=== PATIENT | male | born 1940 | race Caucasian/White ===

== ENCOUNTER → 2019-04-17 16:32 | Outpatient (CLI) | payer MEDICARE, SELFPAY ==
[2019-04-11 14:16] VITALS: BMI 26.3
--- NOTE | 2019-04-17 16:34 | CT_ITS ---
We are attempting to reach an attending provider to discuss findings. An addendum with communication details will be sent when the communication is complete. STUDY: CTA OF THE ABDOMINAL AORTA AND BILATERAL LOWER EXTREMITIES REASON FOR EXAM: Male, 78 years old. Shortness of breath history of prostate cancer radiation RADIATION DOSAGE (If Supplied By Facility): CTDIvol = ( 7.26 ) mGy, DLP = ( 1053.24 ) mGycm TECHNIQUE: Axial CT angiography multi-detector data acquisition was obtained from the to the following intravenous administration of IV Isovue 370 100CC. Axial images and MIP images were reconstructed from the axial data set. Post-processing of the angiographic images was performed, with multiplanar reformation and 3D reconstruction. Individualized dose optimization techniques were used for this CT. TECHNICAL QUALITY: Good COMPARISON: None. Descriptors of Narrowing: None (0%) Mild (< 50%) Moderate (50-70%) Severe (70-90%) Subtotal/Total Occlusion (90-100%) Non-Evaluable (technically non-diagnostic FINDINGS: Abdominal aorta: Aorta at the hiatus shows a 20% rim of anterior thrombosis, the caliber is 2.7 x 2.9 cm. At the level of the celiac aorta measures 2.8 x 2.4 cm. There is a 30% posterior thrombus demonstrated proximal to the level of tic of the renal arteries. There is calcification of the bilateral renal arteries especially on the right which may be hemodynamically significant. There is at least moderate narrowing of the takeoff. The aorta at the level of the renal arteries measures 2.3 x 2.0 cm. Is tortuous. There is peripheral calcification and peripheral thrombus. The aorta measures up to 2.6 x 2.2 cm. There is calcification of the bifurcation. Celiac and superior mesenteric arteries: No demonstrated narrowing. Inferior mesenteric artery: Occluded Right renal artery(arteries): Moderate proximal narrowing. Left renal artery(arteries): Mild to moderate left proximal narrowing. Right common iliac artery: There is moderate diffuse narrowing. Right external iliac artery: Mild to moderate diffuse narrowing. Right internal iliac artery: The right internal iliac is stenosed in the mid pelvis at the level of the abnormal fluid collection presacral stranding in the pelvis. There may be tiny vessels with reconstitution. Left common iliac artery: There is moderate to severe stenosis moderate narrowing likely hemodynamically significant within the mid common also seen on the 3-D reconstructed images. CT image 12 series 208. Left external iliac artery: There is mild to moderate plaque formation. Left internal iliac artery: There is stenosis of the left internal iliac in the mid left pelvis associated with an abnormal thickened fluid collection presacral stranding. RIGHT LOWER EXTREMITY Right common femoral artery: There is mild diffuse narrowing. Right profundus femoris: No demonstrated narrowing. Right superficial femoral: No demonstrated narrowing. Right popliteal artery: There is mild diffuse narrowing. Right tibioperoneal trunk: No demonstrated narrowing. Right anterior tibial artery: No demonstrated narrowing. Right posterior tibial artery: No demonstrated narrowing. Right peroneal artery: No demonstrated narrowing. LEFT LOWER EXTREMITY Left common femoral artery: There is mild diffuse narrowing. Left profundus femoris: No demonstrated narrowing. Left superficial femoral: No demonstrated narrowing. Left popliteal artery: There is mild diffuse narrowing. Left tibioperoneal trunk: No demonstrated narrowing. Left anterior tibial artery: No demonstrated narrowing. Left posterior tibial artery: There is mild to moderate diffuse narrowing, with visualization of the vessel to the distal calf. Left peroneal artery: No demonstrated narrowing. The base of the lungs are clear. The heart is within normal limits of size. The liver appears borderline enlarged fatty infiltrated. The gallbladder is not visualized and is likely been removed. The spleen appears normal the pancreas unremarkable. There is moderate right hydronephrosis which is likely associated with the inflammatory process occurring within the pelvis. There is left renal cortical thinning compatible with prior history of an infection and infarction are possible atherosclerotic disease. The stomach appears normally distended small bowel caliber normal. There is moderate stool in the colon there is diverticulosis without visualized diverticulitis. The colon is partially surrounded by the aforementioned complex appearing infiltration or fluid collection within the pelvis. The IVC appears normal there are several nonspecific subcentimeter peritoneal lymph nodes. There is a visualized prostate measures 2.9 x 3.4 cm. There is a abnormal appearing presacral fluid that measures approximately 3 to 4 cm deep on the axial views extending from the anterior aspect of the acetabulum to the sacrum pooling and a cyclic fashion with a probable rim. There is a suggestion of subtle enhancement. The Hounsfield units are in the range of complex to simple fluid. There is degenerative change in the thoracolumbar spine. There is a visualized laminectomy at L4 and L5. There is anterolisthesis L4-L5. There is a spinal fusion L203. There is multilevel neural foraminal narrowing. 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 This collects along the presacral spaces surrounding the rectum and anterior to the sacrum. Abnormal fluid presacral stranding for which further evaluation is recommended. If possible recommend consideration of follow-up MRI soft tissue pelvis for further clarification. Consider possible inflammatory infectious distention neoplastic or radiation change. This is causing moderate right hydronephrosis. In addition there is stenosis of the bilateral internal iliac arteries which is likely associated with this postinflammatory inflammatory or potentially evolving metastatic or potentially hemorrhagic process. Status post spinal fusion laminectomy degenerative change lumbar spine. Constipation and diverticulosis no diverticulitis. Status post cholecystectomy. 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 Hemodynamically significant stenosis of the left mid common iliac artery. Mild to moderate atherosclerotic disease of the lower extremities. Electronically Signed: Nani Guerra MD at 10:43 EST Tel , Service support ,
[2019-04-17 16:51] LABS: CREATININE FINGERSTICK 1.2 mg/dL (0.70-1.30)
== END ==
PROVIDERS: Family Provider Internal Medicine; PCP Internal Medicine; Referring Provider Surgery; Visit Provider Surgery
DX: I71.4 Abdominal aortic aneurysm, without rupture (principal); I73.9 Peripheral vascular disease, unspecified
CPT/HCPCS: 75635; Q9967

== ENCOUNTER → 2019-04-22 14:55 | Outpatient (CLI) | payer MEDICARE, SELFPAY ==
[2019-04-11 14:16] VITALS: BMI 26.3
--- NOTE | 2019-04-22 15:13 | EKG12_ITS ---
Test Reason : PRE OP Blood Pressure : / mmHG Vent. Rate : 058 BPM Atrial Rate : 058 BPM P-R Int : 166 ms QRS Dur : 100 ms QT Int : 398 ms P-R-T Axes : 069 061 057 degrees QTc Int : 390 ms Sinus bradycardia Otherwise normal ECG Confirmed by DEYAINRA MORRIS, CODY ([id number]), social media editor ASHU WIGGINS ([id number]) on 04/23/2019 11:17:25 AM Referred By: Emory Haywood Confirmed By:CODY MCMILLAN MD
[2019-04-22 15:21] LABS: Hematocrit 39.4 % (40-54); Hemoglobin 12.2 g/dL (13.0-16.5); Mean Corpuscular Hgb 25.7 pg (27.0-32.0); Mean Corpuscular Volume 82.9 fL (80-94); Platelet Count 202 K/mm3 (150-450); RBC Distribution Width CV 13.1 % (11.6-14.6); RBC Distribution Width SD 39.4 fl (35.1-43.9); Red Blood Count 4.75 M/mm3 (4.6-6.2); White Blood Count 6.2 K/mm3 (4.4-11.0)
[2019-04-22 16:00] LABS: Anion Gap 8 (5-15); BUN 25 mg/dL (7-18); BUN/Creat Ratio 21.6 RATIO (10-20); Calcium,Total 8.9 mg/dL (8.5-10.1); Chloride 108 mmol/L (98-107); Creatinine, Serum 1.16 mg/dL (0.70-1.30); EST Glomerular Filtration Rate 64 mL/min (>60); Est Glom Filt Rate - Afr Amer 78 mL/min (>60); Glucose 125 mg/dL (74-106); Potassium 3.8 mmol/L (3.5-5.1); Sodium Level 142 mmol/L (136-145)
== END ==
PROVIDERS: Family Provider Internal Medicine; PCP Internal Medicine; Referring Provider Urology; Visit Provider Urology
DX: Z01.810 Encounter for preprocedural cardiovascular examination (principal); Z01.818 Encounter for other preprocedural examination; C61 Malignant neoplasm of prostate; R00.1 Bradycardia, unspecified
CPT/HCPCS: 36415; 80048; 84153; 85027; 93005

== ENCOUNTER → 2019-04-28 09:33 | Outpatient (CLI) | payer MEDICARE, SELFPAY ==
[2019-04-25 08:16] VITALS: BMI 27.8
--- NOTE | 2019-04-28 09:34 | RAD_ITS ---
STUDY: X-RAY - ABDOMEN/PELVIS REASON FOR EXAM: Male, 78 years old. 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 TECHNIQUE: Single AP view of the abdomen / pelvis. COMPARISON: None. FINDINGS: Normal visualized lung bases. There is an unremarkable bowel gas pattern. The visualized liver, spleen and kidneys are grossly normal in size and morphology. There are calcified phleboliths in the pelvis. Prior laminectomy and fusion at the L3-L4 and L4-L5 levels. Dextroscoliosis. Multilevel degenerative changes of the lumbar spine. Degenerative changes of the sacroiliac joints. RAD/Abdomen Single View IMPRESSION: Nonspecific bowel gas pattern. Electronically Signed: Carlos Eduardo Marr, at 8:45 EST , Service support ,
== END ==
PROVIDERS: Family Provider Internal Medicine; PCP Internal Medicine; Referring Provider Surgery; Visit Provider Surgery
DX: K62.89 Other specified diseases of anus and rectum (principal)
CPT/HCPCS: 74018

== ENCOUNTER 2019-05-02 12:26 | Day surgery (SDC) | payer MEDICARE, SELFPAY ==
[2019-04-11 14:16] VITALS: BMI 26.3
[2019-04-25 08:16] VITALS: BMI 27.8
--- NOTE | 2019-04-25 08:21 | HP_ITS ---
Intake Vital Signs 04/25/19 Height 5 ft 3.5 in 04/25/19 Weight: 160 lb 04/25/19 Body Mass Index (BMI) 27.8 04/25/19 Blood Pressure 139/71 H 04/25/19 Blood Pressure Location Rt brachial 04/25/19 Blood Pressure Position Sitting 04/25/19 Respiratory Rate 16 04/25/19 Pulse Rate 56 L 04/25/19 Pulse Source Monitor 04/25/19 Temperature 98.5 F 04/25/19 Temperature Source Oral 04/25/19 Pulse Ox 96 04/25/19 Oxygen Delivery Method room air 04/25/19 Body Mass Index (BMI) 26.3 Intake Visit Reasons: Follow up CTA Waste Machine Operator Required: No Is patient in pain?: No Allergies aspirin Allergy (Mild, Verified 04/25/19 08:17) Bleeding Medications acetaminophen 325 mg capsule 325 mg PO .prn cap 04/11/19 [History Confirmed 04/25/19] vitamin B complex tablet 1 tab PO DAILY 04/25/19 [History Confirmed 04/25/19] PFSH Medical History (Updated 04/25/19 @ 08:15 by Makenzie New) History of prostate cancer (Acute) Pelvic mass in male (Acute) Peripheral arterial occlusive disease (Acute) Hyperlipidemia (Acute) Rheumatoid arthritis (Acute) Spinal disease (Acute) Prostate cancer (Acute) AAA (abdominal aortic aneurysm) (Acute) PVD (peripheral vascular disease) (Acute) Surgical History (Updated 04/25/19 @ 08:14 by Makenzie New) Hx of bilateral cataract extraction (Acute) History of incisional hernia repair (Acute) S/P prostatectomy (Acute) S/P spinal fusion (Acute) S/P AAA repair (Acute) Family History (Updated 04/11/19 @ 14:13 by Suzie Morales) Brother Diabetes Social History (Updated 04/25/19 @ 08:21 by Sandor Maurer MD) Smoking Status: Former smoker alcohol intake: never substance use type: does not use caffeine: Yes HPI HPI HPI: BROOKE ALICIA, is a 78 M who presents to the office today for HPI HPI Surgical H&P: Yes HPI: BROOKE ALICIA, is a 78 M who presents to the office today for surgical follow-up regarding the CTA abdomen with runoff. It now becomes apparent that December Dr. Oh Alicia attempted a colonoscopy but was not successful. The patient did not describe any of this to me. A biopsy apparently was taken by Dr. Oh Alicia of a suspected mass but the pathology simply benign. His operative note suggest that visualization and angulation to get a clear view of the problem was not possible. The patient did not follow-up with Dr. Alicia regarding this issue. The patient states today that he thought the issue was resolved.The CT scan below demonstrates suggestion that there is significant changes of the prostate bed with hydroureter. The patient has been seen by Dr. Haywood and he is scheduled for cystoscopy and ureteral stent. PSA level that was obtained was normal. [facility] [address] [place] [address] CTA Abd w/Runoff W/WO Contrast MR#: [id number] Name: BROOKE ALICIA [facility] #:[id number] : 1941M [id number] From: Nani Guerra MD PCP:Kaylan Webb Status:REG CLI Study:CTA Abd w/Runoff W/WO Contrast Date of Exam:04/17/19 Exam#[id number] Ordering Dr: Sandor Maurer MD ADDENDUM by Nani Guerra M.D. on 04/20/19 at 1043 STUDY: CTA OF THE ABDOMINAL AORTA AND BILATERAL LOWER EXTREMITIES REASON FOR EXAM: Male, 78 years old. Shortness of breath history of prostate cancer radiation RADIATION DOSAGE (If Supplied By Facility): CTDIvol = ( 7.26 ) mGy, DLP = ( 1053.24 ) mGycm TECHNIQUE: Axial CT angiography multi-detector data acquisition was obtained from the to the following intravenous administration of IV Isovue 370 100CC. Axial images and MIP images were reconstructed from the axial data set. Post-processing of the angiographic images was performed, with multiplanar reformation and 3D reconstruction. Individualized dose optimization techniques were used for this CT. TECHNICAL QUALITY: Good COMPARISON: None. Descriptors of Narrowing: None (0%) Mild (< 50%) Moderate (50-70%) Severe (70-90%) Subtotal/Total Occlusion (90-100%) Non-Evaluable (technically non-diagnostic FINDINGS: Abdominal aorta: Aorta at the hiatus shows a 20% rim of anterior thrombosis, the caliber is 2.7 x 2.9 cm. At the level of the celiac aorta measures 2.8 x 2.4 cm. There is a 30% posterior thrombus demonstrated proximal to the level of tic of the renal arteries. There is calcification of the bilateral renal arteries especially on the right which may be hemodynamically significant. There is at least moderate narrowing of the takeoff. The aorta at the level of the renal arteries measures 2.3 x 2.0 cm. Is tortuous. There is peripheral calcification and peripheral thrombus. The aorta measures up to 2.6 x 2.2 cm. There is calcification of the bifurcation. Celiac and superior mesenteric arteries: No demonstrated narrowing. Inferior mesenteric artery: Occluded Right renal artery(arteries): Moderate proximal narrowing. Left renal artery(arteries): Mild to moderate left proximal narrowing. Right common iliac artery: There is moderate diffuse narrowing. Right external iliac artery: Mild to moderate diffuse narrowing. Right internal iliac artery: The right internal iliac is stenosed in the mid pelvis at the level of the abnormal fluid collection presacral stranding in the pelvis. There may be tiny vessels with reconstitution. Left common iliac artery: There is moderate to severe stenosis moderate narrowing likely hemodynamically significant within the mid common also seen on the 3-D reconstructed images. CT image 12 series 208. Left external iliac artery: There is mild to moderate plaque formation. Left internal iliac artery: There is stenosis of the left internal iliac in the mid left pelvis associated with an abnormal thickened fluid collection presacral stranding. RIGHT LOWER EXTREMITY Right common femoral artery: There is mild diffuse narrowing. Right profundus femoris: No demonstrated narrowing. Right superficial femoral: No demonstrated narrowing. Right popliteal artery: There is mild diffuse narrowing. Right tibioperoneal trunk: No demonstrated narrowing. Right anterior tibial artery: No demonstrated narrowing. Right posterior tibial artery: No demonstrated narrowing. Right peroneal artery: No demonstrated narrowing. LEFT LOWER EXTREMITY Left common femoral artery: There is mild diffuse narrowing. Left profundus femoris: No demonstrated narrowing. Left superficial femoral: No demonstrated narrowing. Left popliteal artery: There is mild diffuse narrowing. Left tibioperoneal trunk: No demonstrated narrowing. Left anterior tibial artery: No demonstrated narrowing. Left posterior tibial artery: There is mild to moderate diffuse narrowing, with visualization of the vessel to the distal calf. Left peroneal artery: No demonstrated narrowing. The base of the lungs are clear. The heart is within normal limits of size. The liver appears borderline enlarged fatty infiltrated. The gallbladder is not visualized and is likely been removed. The spleen appears normal the pancreas unremarkable. There is moderate right hydronephrosis which is likely associated with the inflammatory process occurring within the pelvis. There is left renal cortical thinning compatible with prior history of an infection and infarction are possible atherosclerotic disease. The stomach appears normally distended small bowel caliber normal. There is moderate stool in the colon there is diverticulosis without visualized diverticulitis. The colon is partially surrounded by the aforementioned complex appearing infiltration or fluid collection within the pelvis. The IVC appears normal there are several nonspecific subcentimeter peritoneal lymph nodes. There is a visualized prostate measures 2.9 x 3.4 cm. There is a abnormal appearing presacral fluid that measures approximately 3 to 4 cm deep on the axial views extending from the anterior aspect of the acetabulum to the sacrum pooling and a cyclic fashion with a probable rim. There is a suggestion of subtle enhancement. The Hounsfield units are in the range of complex to simple fluid. There is degenerative change in the thoracolumbar spine. There is a visualized laminectomy at L4 and L5. There is anterolisthesis L4-L5. There is a spinal fusion L203. There is multilevel neural foraminal narrowing. 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 04/20/19 1043 Date cc: Kaylan Webb; Sandor Maurer MD ~* Signed ADDENDUM by Nani Guerra M.D. on 04/20/[address]/CTA Abd w/Runoff W/WO Contrast IMPRESSION: Stenosis of the bilateral internal iliac arteries which may be related to an infectious neoplastic or post radiation process within the pelvis that appears to represent a thick fluid collection or infiltration. This collects along the presacral spaces surrounding the rectum and anterior to the sacrum. Abnormal fluid presacral stranding for which further evaluation is recommended. If possible recommend consideration of follow-up MRI soft tissue pelvis for further clarification. Consider possible inflammatory infectious distention neoplastic or radiation change. This is causing moderate right hydronephrosis. In addition there is stenosis of the bilateral internal iliac arteries which is likely associated with this postinflammatory inflammatory or potentially evolving metastatic or potentially hemorrhagic process. Status post spinal fusion laminectomy degenerative change lumbar spine. Constipation and diverticulosis no diverticulitis. Status post cholecystectomy. 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 Hemodynamically significant stenosis of the left mid common iliac artery. Mild to moderate atherosclerotic disease of the lower extremities. N.B. : The above information has been verbally conveyed by Nani Guerra MD to Dr. Dalila MD, on 04/20/2019 11:00:28 (ET). Electronically Signed: Nani Guerra MD at 10:43 EST Tel , Service support , 04/20/191106 Date cc: Kaylan Webb; Sandor Maurer MD ~* Signed We are attempting to reach an attending provider to discuss findings. An addendum with communication details will be sent when the communication is complete. STUDY: CTA OF THE ABDOMINAL AORTA AND BILATERAL LOWER EXTREMITIES REASON FOR EXAM: Male, 78 years old. Shortness of breath history of prostate cancer radiation RADIATION DOSAGE (If Supplied By Facility): CTDIvol = ( 7.26 ) mGy, DLP = ( 1053.24 ) mGycm TECHNIQUE: Axial CT angiography multi-detector data acquisition was obtained from the to the following intravenous administration of IV Isovue 370 100CC. Axial images and MIP images were reconstructed from the axial data set. Post-processing of the angiographic images was performed, with multiplanar reformation and 3D reconstruction. Individualized dose optimization techniques were used for this CT. TECHNICAL QUALITY: Good COMPARISON: None. Descriptors of Narrowing: None (0%) Mild (< 50%) Moderate (50-70%) Severe (70-90%) Subtotal/Total Occlusion (90-100%) Non-Evaluable (technically non-diagnostic FINDINGS: Abdominal aorta: Aorta at the hiatus shows a 20% rim of anterior thrombosis, the caliber is 2.7 x 2.9 cm. At the level of the celiac aorta measures 2.8 x 2.4 cm. There is a 30% posterior thrombus demonstrated proximal to the level of tic of the renal arteries. There is calcification of the bilateral renal arteries especially on the right which may be hemodynamically significant. There is at least moderate narrowing of the takeoff. The aorta at the level of the renal arteries measures 2.3 x 2.0 cm. Is tortuous. There is peripheral calcification and peripheral thrombus. The aorta measures up to 2.6 x 2.2 cm. There is calcification of the bifurcation. Celiac and superior mesenteric arteries: No demonstrated narrowing. Inferior mesenteric artery: Occluded Right renal artery(arteries): Moderate proximal narrowing. Left renal artery(arteries): Mild to moderate left proximal narrowing. Right common iliac artery: There is moderate diffuse narrowing. Right external iliac artery: Mild to moderate diffuse narrowing. Right internal iliac artery: The right internal iliac is stenosed in the mid pelvis at the level of the abnormal fluid collection presacral stranding in the pelvis. There may be tiny vessels with reconstitution. Left common iliac artery: There is moderate to severe stenosis moderate narrowing likely hemodynamically significant within the mid common also seen on the 3-D reconstructed images. CT image 12 series 208. Left external iliac artery: There is mild to moderate plaque formation. Left internal iliac artery: There is stenosis of the left internal iliac in the mid left pelvis associated with an abnormal thickened fluid collection presacral stranding. RIGHT LOWER EXTREMITY Right common femoral artery: There is mild diffuse narrowing. Right profundus femoris: No demonstrated narrowing. Right superficial femoral: No demonstrated narrowing. Right popliteal artery: There is mild diffuse narrowing. Right tibioperoneal trunk: No demonstrated narrowing. Right anterior tibial artery: No demonstrated narrowing. Right posterior tibial artery: No demonstrated narrowing. Right peroneal artery: No demonstrated narrowing. LEFT LOWER EXTREMITY Left common femoral artery: There is mild diffuse narrowing. Left profundus femoris: No demonstrated narrowing. Left superficial femoral: No demonstrated narrowing. Left popliteal artery: There is mild diffuse narrowing. Left tibioperoneal trunk: No demonstrated narrowing. Left anterior tibial artery: No demonstrated narrowing. Left posterior tibial artery: There is mild to moderate diffuse narrowing, with visualization of the vessel to the distal calf. Left peroneal artery: No demonstrated narrowing. The base of the lungs are clear. The heart is within normal limits of size. The liver appears borderline enlarged fatty infiltrated. The gallbladder is not visualized and is likely been removed. The spleen appears normal the pancreas unremarkable. There is moderate right hydronephrosis which is likely associated with the inflammatory process occurring within the pelvis. There is left renal cortical thinning compatible with prior history of an infection and infarction are possible atherosclerotic disease. The stomach appears normally distended small bowel caliber normal. There is moderate stool in the colon there is diverticulosis without visualized diverticulitis. The colon is partially surrounded by the aforementioned complex appearing infiltration or fluid collection within the pelvis. The IVC appears normal there are several nonspecific subcentimeter peritoneal lymph nodes. There is a visualized prostate measures 2.9 x 3.4 cm. There is a abnormal appearing presacral fluid that measures approximately 3 to 4 cm deep on the axial views extending from the anterior aspect of the acetabulum to the sacrum pooling and a cyclic fashion with a probable rim. There is a suggestion of subtle enhancement. The Hounsfield units are in the range of complex to simple fluid. There is degenerative change in the thoracolumbar spine. There is a visualized laminectomy at L4 and L5. There is anterolisthesis L4-L5. There is a spinal fusion L203. There is multilevel neural foraminal narrowing. 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 This collects along the presacral spaces surrounding the rectum and anterior to the sacrum. Abnormal fluid presacral stranding for which further evaluation is recommended. If possible recommend consideration of follow-up MRI soft tissue pelvis for further clarification. Consider possible inflammatory infectious distention neoplastic or radiation change. This is causing moderate right hydronephrosis. In addition there is stenosis of the bilateral internal iliac arteries which is likely associated with this postinflammatory inflammatory or potentially evolving metastatic or potentially hemorrhagic process. Status post spinal fusion laminectomy degenerative change lumbar spine. Constipation and diverticulosis no diverticulitis. Status post cholecystectomy. 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 Hemodynamically significant stenosis of the left mid common iliac artery. Mild to moderate atherosclerotic disease of the lower extremities. Electronically Signed: Nani Guerra MD at 10:43 EST Tel , Service support , CC: Kaylan Webb; Sandor Maurer MD ~ Quality Engineer Medical Device: Signed Previous notes reflect the following: Intake Visit Reasons: PVD Carotid Flow Study [facility] 03/31 Waste Machine Operator Required: No Is patient in pain?: No Allergies aspirin Allergy (Mild, Verified 04/11/19 14:15) Bleeding Medications acetaminophen 325 mg capsule 325 mg PO .prn cap 04/11/19 [History Confirmed 04/11/19] PFSH Medical History AAA (abdominal aortic aneurysm) (Acute) PVD (peripheral vascular disease) (Acute) Prostate cancer (Acute) Spinal disease (Acute) Surgical History History of incisional hernia repair (Acute) S/P AAA repair (Acute) S/P prostatectomy (Acute) S/P spinal fusion (Acute) Family History Brother Diabetes Social History (Updated 04/11/19 @ 17:52 by Sandor Maurer MD) Smoking Status: Former smoker alcohol intake: never HPI HPI HPI: BROOKE ALICIA, is a 78 M who presents to the office today for surgical consultation regarding peripheral vascular occlusive disease. Patient is referred by his primary care physician Dr. Webb and a written copy of my surgical consult recommendations will be returned to him. Getting a clearance specific history from this patient is rather challenging. He states he is here because of peripheral vascular disease. When questioning him he states he just does not have the ability to do his yard work like he did before. He states that he had back surgery 2-1/2 years ago because of arthritis pushing up on his back. He states he had the low back surgery because he was short of breath. He complains that he finds it very difficult once he bends down to his knees to get up from his knees. He has diffuse soreness and he points to bilateral thighs and inner knee area with walking. He complains of cold toes. Chart review reveals that he had a open aortic aneurysm repair at [facility] in 2008. He does not have routine follow-up for that. Upon further discussion issues with him he claims to have rheumatoid arthritis. He is [place] on no medication for that. He states that he saw a pipe machine operator but that the medications were going to be too expensive so he does not take anything for it. His history is notable for having been a 2 pack-a-day cigarette smoker for 34 years starting at age 59 and quitting at age 49. He has hyperlipidemia. As of March 21, 2019 cholesterol is 253 triglycerides 74 HDL is 41 LDL 197. BUN 21 creatinine 0.9 with a estimated GFR of greater than 60. His hemoglobin is 13.9 and hematocrit is 41.8 with a platelet count of 201,000. He states that it has been recommended to him in the past to be on cholesterol lowering medications. He states that he was either intolerant to the medications or that by reading the medication description that he did not want to experience possible side effect. At [facility] on March 31 carotid duplex exam showed less than 50% stenosis of the right internal carotid and less than 50% stenosis of the left internal carotid. On that same day PVRs at rest suggested right femoral biphasic right popliteal biphasic right posterior tibial triphasic and right dorsalis pedis monophasic with a right ankle-brachial index of 0.89. On the left femoral popliteal posterior tib and dorsalis pedis waveforms are all monophasic. The left ZACH was 0.61. It is of additional note that the PPG waveform of the right great digit was normal. The PPG waveform for the left great digit was normal. HPI HPI HPI: BROOKE ALICIA, is a 78 M who presents to the office today for Exam Const General: cooperative, other (Elderly in appearance) Nutritional Appearance: average body habitus Orientation: alert, awake Other: The patient moves very stiffly and needs help off of the exam table HENMT Other: Moderate kyphosis Resp Effort & Inspection: normal respiratory effort Auscultation: clear to auscultation bilaterally Cardio Rate: regular rate Rhythm: regular rhythm Other: Bilateral radials 2+. Bilateral brachials 2+. Bilateral carotids 2+. 2/6 bruit on the left. No bruit on the right. Left femoral 2+. Right femoral 3+. Left popliteal and PT 1+ with the left DP 0. Right popliteal and PT 1+ with the right DP 0 GI Palpation: soft, no hepatosplenomegaly Auscultation: normal bowel sounds Other: Well-healed xiphoid to pubic midline incision, nontender, not expansile Musc Other: Calves are supple nontender Neuro Cognition: normal cognition Extrem Other: 2+ pitting edema bilateral lower extremities, mildly swollen feet with thin shiny skin of the dorsum of the feet and of all the digits with a violaceous discoloration of the digits and coolness to touch, bony prominence particularly of the left great toe blanching with underneath bone Psych Affect: normal affect Assessment & Plan Problems 1. Rheumatoid arthritis, involving unspecified site, unspecified rheumatoid factor presence M06.9 2. Hyperlipidemia, unspecified hyperlipidemia type E78.5 3. Peripheral arterial occlusive disease I77.9 Plan 78-year-old gentleman. He seemed to be reasonably convinced that the majority of his bilateral lower extremity leg problems were secondary to vascular ischemia. I have very great concerns that although he does have a component of peripheral arterial occlusive disease that his violaceous cool feet are a consequence of his rheumatoid arthritis. It is of note that the noninvasive study demonstrated well-preserved waveforms at the digital level. I have additional concerns that he is not been taking medications for his rheumatoid arthritis. He has also declined medications for his hyperlipidemia. As I witnessed him getting off the exam table and moving to me it appears the majority of his issues are diffuse musculoskeletal stiffness and range of motion limitations and pain. Certainly he could have a component of vascular claudication but I am greatly concerned about his other medical comorbidities. He does have preserved renal function. I have offered him a CTA of the abdomen and runoff. He does not recall having had his aortic aneurysm repair of 2008 recently checked. We will subsequently have him return to the office. If we performed endovascular treatment of his lower extremities we would have to take an antegrade approach because of the previous graft repair of his aneurysm. He has had an opportunity to ask and have questions answered. I believe that both he and his are now more fully enlightened as to the complexity of his presentation. I believe that he might reconsider pursuing medical maximization of his care in addition to the CTA. I very much appreciate the kind opportunity of assisting with surgical care CC: Dr. Tracey Maurer M.D., F.A.C.S. Orders Orders: CTA Abd w/Runoff W/WO Contrast Today I71.4, I73.9 Coding Level of Care Code 90420 Diagnoses Rheumatoid arthritis, involving unspecified site, unspecified rheumatoid factor presence M06.9 Rheumatoid arthritis location: unspecified site Rheumatoid factor presence: unspecified presence Hyperlipidemia, unspecified hyperlipidemia type E78.5 Hyperlipidemia type: unspecified Peripheral arterial occlusive disease I77.9 04/11/19 413<Electronically signed by Sandor Maurer MD> Date Sandor Maurer MD ROS General General: No weight change, appetite, fatigue, colon cancer or breast cancer HEENT HEENT: Yes eye surgery; no difficulty swallowing, eye injury, swollen glands or hoarseness Endo Endocrine: No thyroid disease, diabetes mellitus, thyroid cancer, Hair loss, heat intolerance or cold intolerance Skin Skin: No rash or changing moles Musc Musculoskeletal: Yes back problems, arthritis, rheumatoid arthritis and joint pain; no gout Cardio Cardiovascular: No murmur, pacemaker, heart disease, atrial fibrillation, high blood pressure, heart attack, heart stent, palpitations, shortness of breat with exertion or chest pain Psych Psychiatric: No depression, anxiety or hearing voices Resp Respiratory: Yes shortness of breath, No sleep apnea, No cough, No COPD, No asthma, No emphysema, No wheezing Gastro Gastrointestinal: No abdominal pain, No nausea or vomiting, No diarrhea, No constipation, No blood in stool, No acid reflux, No hemorrhoids, No ulcers, No gallbladder problem, No black,tarry stools [place] Hematologic: No blood thinners, No blood disorders, No bleeding, No anemia, No blood clots Neuro Neurologic: Yes numbness, Yes tingling Exam Cardio Heart Sounds: no murmurs Assessment & Plan Problems 1. Pelvic mass in male R19.00 Plan I have discussed with the patient his that the pelvic mass that he has is now a primary concern. This would seem to make sense with a degree of bilateral lower extremity swelling. 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 I have suggested to him that that is not my primary concern for him at the moment. Based upon the unsuccessful colonoscopy I recommend to him a barium enema in an attempt to try to better define whether his pelvic mass is colonic in origin or prostate in origin. The patient also scheduled for cystoscopy and ureteral stent placement per Dr. Haywood.. We will then have the patient return subsequently to discuss how to approach and diagnosed that pelvic mass problem. It could require that I try myself or repeat endoscopy attempt possibly with an upper scope with the intent to do a flexible sigmoidoscopy. The patient and his now seem to understand that this pelvic mass problem has not been resolved with his previous attempted colonoscopy. They are willing to proceed with further diagnostic and if need be therapeutic efforts. I will place the arterial work on hold temporarily. cc:Dr Claudia Maurer M.D., F.A.C.S. Orders Orders: Barium Enema w/Air Contrast Today K62.89 Coding Level of Care Code Off vis,est,level 2 Diagnoses Pelvic mass in male R19.00 04/25/19 0821 <Electronically signed by Sandor arias MD> Date _ Sandor Maurer MD
[2019-05-02 13:05] VITALS: BP 135/62; PULSE 52; RESP 16; TEMP 36.3; O2SAT 100; BMI 26.5
[2019-05-02] MEDS: Lactated Ringers 1,000 ML 100 ML IV (13:28)
--- NOTE | 2019-05-02 14:30 | PROSB_PTH ---
PATIENT: BROOKE ALICIA LOC[place] [facility] [place][id number] AGE/SX: 78/M ROOM: RE05/02/[address]: Dr. Emory Haywood MD : 1940 BED: DIS: 05/02/2019 SPEC #: [id number] RECD: 05/05/19 07:45 STATUS: JAVIER RECabrera #: [id number] DOROTEO: 05/02/19 14:[address]: Emory Haywood DEPT: SURGICAL PATHOLOGY RECD BY: Lillian Oviedo ENTERED: 05/05/19 10:01 SP TYPE: PROST BX OTHR DR: Dr. Kaylan Webb MD Tissues: Prostate, NOS Procedures: Surgery Specimen Level IV HEADER OPERATION: Transrectal biopsies of prostate, cysto, retrograde, stent PRE-OP DIAGNOSIS: Prostatic mass, right hydronephrosis TISSUE SUBMITTED: Transrectal biopsies MICROSCOPIC DIAGNOSIS Prostate, transrectal biopsies: Prostatic stromal tissue with hyalinization and chronic inflammation. Negative for malignancy. See comment. URVASHI:dona 05/06/19 COMMENT The findings may represent therapy-related changes. Mild stromal hyperplasia is noted, may represent stromal nodule. No glandular tissue is identified. Correlation with clinical findings and appropriate follow up are necessary. If there is high suspicion of malignancy, rebiopsy is suggested, if clinically indicated. 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 Case has been reviewed in consultation with Dr. Levy who concurs with the above diagnosis. IDC:AM MICROSCOPIC DESCRIPTION Slides are reviewed. GROSS DESCRIPTION Received in fixative is one container labeled with the patient's name and designated transrectal biopsy. The specimen consists of five elongated fragments of light camara-white soft tissue measuring 1 to 4 cm in length and 0.1 cm in diameter. The specimen is totally submitted in two cassettes. The largest fragment is present in cassette 1. / URVASHI:dona 05/05/19 TC:3 CPT: 13212
[2019-05-02] MEDS: Cefazolin 2 GM in 0.9% Normal Saline 100 ML IV (14:53)
[2019-05-02] MEDS: Lubricating Jelly 60 GM Tube 30 GM TOPICAL (14:55)
--- NOTE | 2019-05-02 14:56 | DCINST_ITS ---
- Discharge Diagnoses Current Active Problems: prostate biopsy Reason(s) for Visit for Discharge Instructions: biopsy You will use the following diet at home:: No restrictions Your food should be the consistency of: Regular Discharge Activity: Return to Normal Activity Call your doctor if your incision/area has: Sudden Increased Bleeding Call your doctor if you observe: Fever of 101 or Higher Allergies/Adverse Reactions: Allergies aspirin Allergy (Mild, Verified 05/02/19 13:04) Bleeding gums Medications to take at Discharge acetaminophen 325 mg capsule 325 mg PO PRN PRN cap 04/11/19 Cyanocobalamin (Vitamin B-12) [Vitamin B-12] 5,000 mcg PO DAILY 04/25/19 Ciprofloxacin [Cipro] 500 mg PO BID #6 tab 05/02/19 The following prescriptions were given: Ciprofloxacin [Cipro] 500 mg PO BID #6 tab Transmission Status: Pending to [facility] Primary Care Physician: Kaylan Webb [Primary Care Provider] - Test Results: Test results from this visit will be discussed in further detail at your follow- up appointment, if applicable. Please Follow Up With: Emory Haywood MD When: 2 weeks.
--- NOTE | 2019-05-02 15:33 | PCM.OPRPT ---
Report of Operation Date of Procedure: 05/02/19 Pre-Operative Diagnosis: Firm mass on rectal exam history of prostate cancer right hydronephrosis on CAT scan Post-Operative Diagnosis: The same, firm mass on rectal exam Surgery/Procedure Performed:: Cystoscopy, right retrograde pyelogram, interpretation fluoroscopic images, right stent placement, transrectal biopsy of mass Description of Surgical Findings:: 78-year-old male who was recently found to have hydronephrosis on the right kidney and a CAT scan also on exam he has a hard mass within the prostate area he has a history of prostate cancer treated long time ago. There is concerned that perhaps this may be recurrent prostate cancer or some sort of process so today I am going to proceed with a cystoscopy retrograde pyelogram and stent placement on the right side because of obstruction of the right kidney and also we will do a transrectal biopsy of the firm mass felt on exam. Patient was taken back to the operating room after smooth induction of anesthesia he was placed in dorsolithotomy position penis and testicles were prepped and draped in usual sterile fashion went into the urethra with a 21 Indonesian rigid cystourethroscope using a 30 degree lens the entire length urethra is normal the sphincter was intact when she crossed through the prostate area very firm hard prostate could feel the pushing against the scope very hard to get through it very firm prostate as I got into the bladder the prostate was high riding could not see the ureteral orifices can see the bladder there is no tumors or stones within the bladder we can feel the hard prostate pushing the scope up very difficult to see the ureteral orifices, I switched over to 70 degree lens and I was able to identify the left ureteral orifice and then I was then identified the right ureteral orifice using all bronze bridge I then was able to deflect the Pollick catheter into the path of the right ureteral orifice and after several attempts was able to cannulate the right ureteral orifice with a Pollick catheter and a Glidewire events a wire up into the right kidney, performed a retrograde pyelogram, looked at the contrast and the images he had hydronephrosis of the right side I then advanced a wire up into the right kidney and then over the wire advanced a stent 6 Indonesian by 26 cm stent I put a string of the stent but cut it short so there is any problems or difficulties I can use a string to help extract the stent. I position the stent in the bladder properly and there was in the kidney properly. We then drained the bladder there is some minimal bleeding from the procedure because had to reduce some torquing in order to place a stent which caused some bleeding at the bladder neck. I then used a double gloved approach to do a biopsy of the mass felt on exam on exam of the prostate he just had this firm mass almost circumferential on the rectal exam on CAT scan he can can see a firm area that was very thickened 3 or 4 biopsies were done good samples were taken and these were handed off as a specimen. After this pressure was held on the rectum but then there is no more bleeding. Patient anesthetic is currently being reversed plan to see him back in about 2 weeks to review the tissue report and certainly treatments can be dictated by what the tissue report shows in the biopsy with recurrent prostate cancer we will start him on treatment with another process we will have the do appropriate referrals. Type of Anesthesia:: General Drains: right stent - Admit VTE Documentation VTE Present on Admission: No
[2019-05-02 15:45] VITALS: BP 135/62; BP 152/69; PULSE 61; RESP 18; TEMP 36.5; O2SAT 99
[2019-05-02 16:00] VITALS: BP 135/62; BP 153/64; PULSE 64; RESP 16; O2SAT 95
[2019-05-02 16:15] VITALS: BP 135/62; BP 159/63; PULSE 65; RESP 16; O2SAT 98
[2019-05-02 16:28] VITALS: BP 135/62; BP 165/76; PULSE 63; RESP 16; TEMP 36.2; O2SAT 100
[2019-05-02 17:33] VITALS: BP 135/62
== END 2019-05-02 17:34 | disposition home or self-care (01) ==
LOC: SDC 12:27 → AC 12:28
PROVIDERS: Family Provider Internal Medicine; PCP Internal Medicine; Referring Provider Urology; Visit Provider Urology
PROC: (CPT 52332; principal; 2019-05-02 14:20)
DX: N40.3 Nodular prostate with lower urinary tract symptoms (principal); R35.0 Frequency of micturition; N13.30 Unspecified hydronephrosis; Z85.46 Personal history of malignant neoplasm of prostate; Z87.891 Personal history of nicotine dependence
CPT/HCPCS: 45100; 52332; 76000; 88305; J7120; C2617; J2405

== ENCOUNTER 2019-05-13 09:19 | Emergency (ER) | payer MEDICARE, SELFPAY ==
[2019-05-07 16:13] VITALS: BMI 26.5
[2019-05-13 09:21] VITALS: BP 138/62; PULSE 80; RESP 16; TEMP 36.4; O2SAT 100; BMI 25.8
--- NOTE | 2019-05-13 09:39 | EKG12_ITS ---
Test Reason : LOWER EXEMITRY Blood Pressure : / mmHG Vent. Rate : 060 BPM Atrial Rate : 060 BPM P-R Int : 148 ms QRS Dur : 096 ms QT Int : 374 ms P-R-T Axes : 052 054 028 degrees QTc Int : 374 ms Normal sinus rhythm Normal ECG Confirmed by BRANDON AGARWAL ([id number]), news assignment editor JEMMA ALICIA ([id number]) on 05/16/2019 11:27:05 AM Referred By: BIPIN Confirmed By:BRANDON AGARWAL
--- NOTE | 2019-05-13 09:41 | VDLE_ITS ---
Reason For Study: swelling RIGHT LEFT POP V is compressible, spontaneous, phasic, CFV is compressible, spontaneous, phasic, competent and demonstrates normal competent, and demonstrates normal augmentation. augmentation. T/P Trunk is compressible. PTV is compressible. RT PerV is compressible. CFV and FV are dilated and noncompressible without flow. Proximal GSV is dilated and noncompressible. Hypoechoic area behind the knee measuring 1.3 x 1.86 cm in short. Area is nonvascular. Procedure Exam performed portable in ED. The exam was diagnostic. A preliminary report was called and/or faxed to ED physician. Interpretation Summary Acute deep vein thrombosis is noted in the right common femoral vein. Acute deep vein thrombosis is noted in the right femoral vein. The remainder of the right lower extremity deep venous system is patent and compressible. The right popliteal vein is competent. Acute superficial thrombophlebitis is noted in the proximal right great saphenous vein. A non-vascular, hypoechoic structure is noted in the right popliteal space, measuring 1.3 cm x 1.86 cm. This probably represents a popliteal cyst. Clinical correlation is advised. Ordering Physician: Connor Cade Performed By: Jamel Leal RVT
--- NOTE | 2019-05-13 09:42 | ED.DCSUM_ITS ---
- ER Visit Summary Date of Service: 05/13/19 Chief Complaint: Lower extremity pain and swelling History of Present Illness: The patient is a 78 M who presents with lower extremity pain and swelling that began yesterday. Patient states the pain is a dull ache. Patient states the pain improves when he sits. Patient admits to some tingling in both of his great toes. Patient denies any weakness. Patient states the pain is worse over the medial aspect of the right thigh. Patient also admits to some shortness of breath with exertion. Patient denies any chest pain. Patient states he has been having some urinary retention since last night. Patient states he was able to dribble a small amount of urine this morning but still feels like he has a lot of pressure in his bladder. Physical Examination: Vital signs are stable. Patient is afebrile. Patient is in no acute distress. Oral mucosa is pink and moist. Neck is supple. Trachea is midline. There is no JVD. Heart was regular rate and rhythm. Lungs are clear and equal bilaterally. Abdomen is soft and nontender. Extremities are intact. There is 3+ edema of the right lower extremity. There is no tenderness to palpation. There is no edema of the left lower extremity. Sensation was intact light touch in all digits. Capillary refill is less than 2 seconds in all digits. Test Results: CBC shows a mild anemia with a hemoglobin of 12.4 hematocrit of 39.3. White blood cell count was normal. Basic metabolic profile was normal. Urinalysis shows leukocyte esterase of 100 with greater than 100 white blood cells and 50-100 red blood cells. EKG showed normal sinus rhythm with a rate of 60. There are no acute ST or T wave changes. Chest x-ray shows a small density in the right paratracheal area. CTA of the chest was obtained. There are multiple nodules in the right lung which raises suspicion of metastases. Venous duplex of the right lower extremity was obtained. There is a DVT in the common femoral vein, femoral vein, and proximal greater saphenous vein. This is new. Emergency Department Course and Treatment: Patient was given a dose of Lovenox here. Patient was started on Rocephin here. Case was discussed with Dr. Haywood. He agrees with antibiotic therapy. He reported that the patient had a recent prostate biopsy which showed normal tissue and no evidence of cancer. Case was discussed with the hospitalist. He did not feel the patient warranted admission. Patient was given a prescription for Eliquis and Cipro. Patient was instructed to follow-up with his primary care physician in 3 to 5 days. Patient was also instructed to follow-up with Dr. Haywood in 5 to 7 days. Patient understood and was agreeable with the plan. All questions were answered. Disposition: Discharge home Impression: 1. DVT 2. Urinary tract infection This note was generated with [employer] dictation software. It may contain incorrect words, spelling, and punctuation that were not noted in review of the chart prior to signing ED Disposition - Plan for ED Patient: Disposition: Home or Assisted Living Diagnosis: Deep vein thrombosis (DVT) of left lower extremity, Urinary tract infection Instructions: Deep Vein Thrombosis, Bladder Infection, Male (Adult) Prescriptions: Ciprofloxacin [Cipro] 500 mg PO BID #14 tab Prescription Printed Apixaban [Eliquis] 5 mg PO BID #28 tab Prescription Printed Referrals: Kaylan Webb [Primary Care Provider] - 3-5 Days Emory Haywood MD [STAFF PHYSICIAN] - 5-7 Days
[2019-05-13 09:59] LABS: Absolute Lymphocyte Count 1.12 X10^3/uL (0.83-4.51); Absolute Neutrophil Count 5.7 X10^3/uL (2.0-7.7); Basophil# 0.02 X10^3/uL; Basophil% 0.3 % (0-1); Eosinophil# 0.11 X10^3/uL; Eosinophils% 1.5 % (0-5); Hematocrit 39.3 % (40-54); Hemoglobin 12.4 g/dL (13.0-16.5); Lymphocyte # 1.12 X10^3/ul (4.0); Lymphocyte % 14.8 % (19-41); Mean Corp Hgb Conc 31.6 g/dL (32-36); Mean Corpuscular Hgb 26.2 pg (27.0-32.0); Mean Corpuscular Volume 83.1 fL (80-94); Monocyte# 0.55 X10^3/uL; Monocyte% 7.3 % (0-10); NRBC Flagged by Analyzer 0 % (0-5); Neutrophil # 5.69 X10^3/uL (2.7-7.7); Neutrophil % 75.2 % (47-70); Platelet Count 159 K/mm3 (150-450); RBC Distribution Width CV 13.6 % (11.6-14.6); RBC Distribution Width SD 41.4 fl (35.1-43.9); Red Blood Count 4.73 M/mm3 (4.6-6.2); White Blood Count 7.6 K/mm3 (4.4-11.0)
[2019-05-13 10:08] LABS: Partial Thromboplast Time 31.2 Seconds (24.1-36.2); Prothrombin Time (Protime)PT. 13.4 SECONDS (11.7-14.9)
[2019-05-13 10:12] LABS: Anion Gap 6 (5-15); BUN 21 mg/dL (7-18); BUN/Creat Ratio 18.9 RATIO (10-20); Calcium,Total 9.1 mg/dL (8.5-10.1); Chloride 108 mmol/L (98-107); Creatinine, Serum 1.11 mg/dL (0.70-1.30); EST Glomerular Filtration Rate 68 mL/min (>60); Est Glom Filt Rate - Afr Amer 82 mL/min (>60); Glucose 160 mg/dL (74-106); Potassium 3.8 mmol/L (3.5-5.1); Sodium Level 140 mmol/L (136-145)
[2019-05-13 10:15] LABS: Mucous, Urine 0 SEEN /hpf (<or=2+)
[2019-05-13 10:21] LABS: Color, Urine Yellow (Yellow); Glucose, Dipstick Normal (Normal); Ketone-Dipstick 5 mg/dl (Negative); Leukocyte Esterase-Dipstick 100 /ul (Negative); Nitrite-Dipstick Negative (Negative); Occult Blood-Urine 250 /ul (Negative); Protein-Dipstick 100 mg/dl (Negative); Specific Gravity, Urine 1.025 (1.002-1.030); Urine Bilirubin Dipstick Negative (Negative); Urine Clarity Sl. Cloudy (Clear); Urine Urobilinogen Normal (Normal)
--- NOTE | 2019-05-13 10:21 | CT_ITS ---
STUDY: CTA CHEST REASON FOR EXAM: Male, 78 years old. RADIATION DOSAGE (If Supplied By Facility): CTDIvol = ( 11.09 ) mGy, DLP = ( 335.21 ) mGycm TECHNIQUE: The examination was performed with the intravenous administration of IV Isovue 370 100c. Post-processing of the angiographic images was performed, with multiplanar reformation and 3D reconstruction. Individualized dose optimization techniques were used for this CT. COMPARISON: None. FINDINGS: Normal enhancement of the main pulmonary artery and right and left pulmonary arteries. Normal enhancement of the bilateral peripheral pulmonary arteries. There is no demonstrated pulmonary embolism. Normal thoracic aorta and visualized great vessels. There is no demonstrated aortic dissection. Normal heart and pericardium. Normal mediastinum. Normal hilar regions. Normal visualized trachea and bronchi. There is 6 mm nodule involving the midportion of the right lung. (Image 157/236). There is irregular mass-like lesion involving the medial aspect of the right apex measures 2 x 1.4 cm (image 213/236). There is a small lesion close to the minor fissure on the right side this measures 6 mm (Image 150/236) , another small nodule present in the right lower lung field that measures about 1 cm (image 136/236). There are a few other tiny nodules present in the right base. These findings raising the possibility of metastases. Normal pleura. Normal chest wall structures. Normal osseous structures except for hypertrophic changes involving the spine. Normal visualized upper abdomen. CT/CTA Chest W/WO Contrast IMPRESSION: Multiple nodules involving the right lung raising the possibility of metastases. Is any known primary in this patient? Electronically Signed: Ugo Hair, at 11:37 EST Tel , Service support ,
[2019-05-13 10:31] LABS: Red Blood Cells-Urine 50-100 SEEN /hpf (0-5); White Blood Cells >100 SEEN /hpf (0-5)
[2019-05-13 10:32] LABS: Bacteria 3+ /hpf (None Seen); Renal Epithelial Cells 0-5 SEEN /hpf (0-5); Squamous Epithelial Cells - UA 0-5 SEEN /hpf (0-5); Transitional Epithelial - Ur 0-5 SEEN /hpf (0-5)
[2019-05-13 10:33] LABS: Amorphous Sediment 2+
--- NOTE | 2019-05-13 11:11 | RAD_ITS ---
STUDY: X-RAY CHEST REASON FOR EXAM: Male, 78 years old. TECHNIQUE: 2 views COMPARISON: None. FINDINGS: The lungs are clear and expanded faint density seen medial aspect of the right upper lung field in the right paratracheal region please refer to the CT scan done same day. Otherwise the lung ball in this plain x-ray is unremarkable. Some calcification noted in the thoracic aorta. There is no demonstrated pleural abnormality. Normal size heart. Normal mediastinum and ranjith. Normal visualized pulmonary arteries. Normal visualized aortic arch and descending thoracic aorta. Normal visualized thoracic spine. Normal visualized ribs, clavicles, and shoulders. There is no demonstrated abnormality of the visualized soft tissue structures of the upper abdomen. RAD/Chest PA and Lateral IMPRESSION: Small density in the right paratracheal area superimposing 4th rib please refer to the CT scan done same day. Electronically Signed: Ugo Hair, at 11:42 EST Tel , Service support ,
[2019-05-13] MEDS: Enoxaparin 80 MG/0.8 ML Syringe SC (11:53)
[2019-05-13 11:57] VITALS: RESP 18
[2019-05-13] MEDS: Ceftriaxone 1 GM/50 ML BAG IV (14:02)
[2019-05-13 14:04] VITALS: BP 141/66; PULSE 60; RESP 18; O2SAT 97
[2019-05-13 15:16] VITALS: BP 149/66; PULSE 88; RESP 14; O2SAT 96
--- NOTE | 2019-05-13 15:16 | ED.RN ---
GRIFFITH CATHETER D/C'D AT THIS TIME FOR PATIENT BEING DISCHARGED TO HOME. PT TOLERATED WELL. NO BLEEDING. 10CC IN BALLOON REMOVED.
== END 2019-05-13 15:18 | disposition home or self-care (01) ==
PROVIDERS: Emergency Provider Emergency Medicine; Family Provider Internal Medicine; PCP Internal Medicine
DX: I82.411 Acute embolism and thrombosis of right femoral vein (principal); I82.811 Embolism and thrombosis of superficial veins of right lower extremity; N39.0 Urinary tract infection, site not specified; M06.9 Rheumatoid arthritis, unspecified; Z85.46 Personal history of malignant neoplasm of prostate
CPT/HCPCS: 51702; 71046; 71275; 80048; 81001; 85025; 85610; 85730; 87086; 93005; 93971; 96365; 96372; 99285; J7050; Q9967; A4216

== ENCOUNTER → 2019-08-13 13:10 | Outpatient (CLI) | payer MEDICARE, SELFPAY ==
--- NOTE | 2019-08-13 13:15 | CT_ITS ---
STUDY: CT CHEST WITHOUT CONTRAST REASON FOR EXAM: Male, 78 years old. LUNG NODULE FOLLOW UP RADIATION DOSAGE (If Supplied By Facility): CTDIvol = ( 14.17 ) mGy, DLP = ( 509.83 ) mGycm TECHNIQUE: Transaxial imaging was performed without the administration of intravenous contrast material. Coronal and sagittal reconstructions were performed. Individualized dose optimization techniques were used for this CT. COMPARISON: CTA chest 05/13 2019. FINDINGS: Interval resolution of the right apical irregular subpleural masslike density with spiculated margins. Mild overlying right apical pleural thickening is unchanged. The previous 6 mm noncalcified and indeterminate pulmonary nodule in the right upper lobe has markedly decreased in size. It now measures less than 3 mm (series 4, image 40; series 602, image 105; series 601, image 68). Subpleural calcified granuloma in the medial aspect of the right upper lobe is unchanged. 4 mm noncalcified and indeterminate pulmonary nodule in the right upper lobe (series 4, image 39; series 601, image 116; series 602, images 81). This is unchanged. Small calcified granuloma in the peripheral aspect of the right upper lobe is unchanged. Noncalcified and indeterminate pulmonary nodule in the right upper lobe near the right hilum measures 3 mm in diameter (series 4, image 51; series 601, image 111; series 602, images 98-100). This is unchanged. Two 3 mm noncalcified and indeterminate pulmonary nodules in the right middle lobe (series 4, images 57-59; series 601, images 84-86 and 95-98; series 602, images 61-67). These are unchanged. Calcified granuloma in the medial aspect of the left lung apex. No pulmonary nodules in the left lung. No pleural fluid. Normal cardiac size but there is extensive atherosclerotic calcification of the LAD presence of the left coronary artery and the first diagonal branch. No pericardial fluid. Normal mediastinum. Normal hilar regions. Normal unenhanced pulmonary arteries. Mild atherosclerotic calcifications along the transverse aorta and minimal calcifications of the descending thoracic aorta. No acute osseous abnormality. Mild diffuse fatty infiltration of the liver. Multiple small diverticula in the hepatic flexure and the splenic fracture without diverticulitis. CT/Chest without Contrast IMPRESSION: 1. Interval resolution of the right apical irregular subpleural masslike density with spiculated margins. The overlying right apical pleural thickening is unchanged. 2. Less than 3 mm diameter noncalcified and indeterminate pulmonary nodule in the right upper lobe, previously 6 mm. 3. 4 mm noncalcified and indeterminate pulmonary nodule in the right upper lobe is unchanged. 4. Two 3 mm noncalcified and indeterminate pulmonary nodules in the right middle lobe are unchanged. 5. Extensive atherosclerotic calcifications of the LAD branch of the left coronary artery and the first diagonal branch. 6. Mild asymmetric diffuse hepatic steatosis is unchanged. 7. Multiple small diverticula in the hepatic flexure and splenic flexure without diverticulitis. 2017 Ricky Society Pulmonary Nodule Recommendations: Solid nodules Multiple solid nodules <6 mm (<100 mm3) * low-risk patients: no routine follow-up required * high-risk patients: optional CT at 12 months Electronically Signed: Arley Denny MD at 15:56 EST , Service support ,
== END ==
PROVIDERS: Family Provider Internal Medicine; PCP Internal Medicine; Referring Provider Internal Medicine Pulmonary Disease; Visit Provider Internal Medicine Pulmonary Disease
DX: R91.8 Other nonspecific abnormal finding of lung field (principal)
CPT/HCPCS: 71250

== ENCOUNTER → 2019-08-22 | Outpatient (CLI) | payer MEDICARE, SELFPAY | END | disposition home or self-care (01) | LOC: LAB.FUTURE 07:36 → LABSPEC 07:40 | PROVIDERS: PCP Internal Medicine; Referring Provider Internal Medicine Pulmonary Disease; Visit Provider Internal Medicine Pulmonary Disease | DX: R05 Cough (principal) | CPT/HCPCS: 87015; 87101; 87116; 87206 ==

== ENCOUNTER → 2019-08-26 | Outpatient (CLI) | payer MEDICARE, SELFPAY | END | disposition home or self-care (01) | LOC: LABSPEC 07:56 | PROVIDERS: PCP Internal Medicine; Referring Provider Internal Medicine Pulmonary Disease; Visit Provider Internal Medicine Pulmonary Disease | DX: R05 Cough (principal) | CPT/HCPCS: 87015; 87116; 87206 ==

== ENCOUNTER → 2019-08-28 | Outpatient (CLI) | payer MEDICARE, SELFPAY | END | disposition home or self-care (01) | LOC: LABSPEC 08:03 | PROVIDERS: PCP Internal Medicine; Visit Provider Internal Medicine Pulmonary Disease | DX: R05 Cough (principal) | CPT/HCPCS: 87015; 87116; 87206 ==

== ENCOUNTER → 2019-11-21 14:39 | Outpatient (CLI) | payer MEDICARE, SELFPAY ==
[2019-11-21 17:58] LABS: Absolute Lymphocyte Count 2.21 X10^3/uL (0.83-4.51); Absolute Neutrophil Count 3.8 X10^3/uL (2.0-7.7); Basophil# 0.03 X10^3/uL; Basophil% 0.4 % (0-1); Eosinophils% 4.3 % (0-5); Hematocrit 42.2 % (40-54); Hemoglobin 12.8 g/dL (13.0-16.5); Lymphocyte # 2.21 X10^3/ul (4.0); Lymphocyte % 31.4 % (19-41); Mean Corp Hgb Conc 30.3 g/dL (32-36); Mean Corpuscular Hgb 24.8 pg (27.0-32.0); Mean Corpuscular Volume 81.6 fL (80-94); Mean Platelet Vol. 11.4 fl (6.2-12.0); Monocyte# 0.63 X10^3/uL; Monocyte% 8.9 % (0-10); NRBC Flagged by Analyzer 0 % (0-5); Neutrophil # 3.83 X10^3/uL (2.7-7.7); Neutrophil % 54.4 % (47-70); Platelet Count 196 K/mm3 (150-450); RBC Distribution Width CV 14.7 % (11.6-14.6); RBC Distribution Width SD 43.5 fl (35.1-43.9); Red Blood Count 5.17 M/mm3 (4.6-6.2)
[2019-11-21 18:27] LABS: ALB/GLOB Ratio 0.9 RATIO (0.9-2.4); AST(SGOT) 20 U/L (15-37); Alanine Aminotransfer ALT/SGPT 25 U/L (16-61); Albumin, Serum 3.4 g/dL (3.2-5.0); Alkaline Phosphatase 44 U/L (45-117); Anion Gap 7 (5-15); BUN 25 mg/dL (7-18); BUN/Creat Ratio 25.6 RATIO (10-20); Calcium,Total 9.3 mg/dL (8.5-10.1); Chloride 105 mmol/L (98-107); Creatinine, Serum 0.98 mg/dL (0.70-1.30); EST Glomerular Filtration Rate 78 mL/min (>60); Est Glom Filt Rate - Afr Amer 95 mL/min (>60); Globulin 3.8 g/dL (2.2-4.2); Glucose 82 mg/dL (74-106); Protein, Total 7.2 g/dL (6.4-8.2); Sodium Level 137 mmol/L (136-145)
[2019-11-21 18:45] LABS: Erythrocyte Sedimentation Rate 35 mm/hr (0-20)
[2019-11-24 09:55] LABS: Hepatitis B Surface Antibody Non-Reactive; Hepatitis B Surface Antigen Non-Reactive (Nonreactive); Hepatitis C Antibody Non-Reactive (Nonreactive)
[2019-11-25 06:06] LABS: CCP IgG Antibodies > 250 units (0-19); Hepatitis B Core AB IgM Negative (Negative)
== END ==
PROVIDERS: PCP Internal Medicine; Referring Provider Internal Medicine Rheumatology; Visit Provider Internal Medicine Rheumatology
DX: M05.79 Rheumatoid arthritis with rheumatoid factor of multiple sites without organ or systems involvement (principal); Z79.899 Other long term (current) drug therapy; M19.041 Primary osteoarthritis, right hand; M16.0 Bilateral primary osteoarthritis of hip; Q66.70 Congenital pes cavus, unspecified foot
CPT/HCPCS: 36415; 80053; 85025; 85652; 86140; 86200; 86431; 86705; 86706; 86803; 87340

== ENCOUNTER → 2020-02-11 12:37 | Outpatient (CLI) | payer MEDICARE, SELFPAY ==
--- NOTE | 2020-02-11 12:41 | CT_ITS ---
STUDY: CT CHEST WITHOUT CONTRAST REASON FOR EXAM: Male, 79 years old. LUNG NODULE FOLLOW UP -- HX-PROSTATE CA RADIATION DOSAGE (If Supplied By Facility): CTDIvol = ( 14.42 ) mGy, DLP = ( 526.17 ) mGycm TECHNIQUE: Transaxial imaging was performed without the administration of intravenous contrast material. Multiplanar coronal and sagittal images were reformatted. Individualized dose optimization techniques were used for this CT. COMPARISON: Comparison is made with prior examination dated 05/13/2019. FINDINGS: Stable small benign-appearing bilateral axillary lymph nodes. Gynecomastia. Stable small calcified granuloma in the posterior medial aspect of the right upper lobe. Stable calcified granuloma in the medial aspect of the left lung apex. Minimal residual scarring is seen in the right lung apex. The previously seen masslike abnormality has resolved. Minimal residual thickening of the right minor fissure. 2 adjacent 3 mm nodules are seen in the anterior aspect of the right middle lobe. There is no demonstrated pleural abnormality. There are calcifications of the coronary arteries. There are multiple small lymph nodes within the mediastinum, which are normal in size and morphology most compatible with reactive lymph hyperplasia. Calcified left hilar lymph nodes. Normal unenhanced pulmonary arteries. There is atherosclerotic calcification of the aortic arch with tortuosity and elongation of the aortic arch and descending thoracic aorta. There are multi-level degenerative changes of the thoracic spine. Fatty infiltration of the liver. CT/Chest without Contrast IMPRESSION: Scattered calcified granulomas. The previously seen irregular nodule in the right lung apex has resolved. Electronically Signed: Carlos Eduardo Marr, at 13:54 EDT , Service support ,
== END ==
PROVIDERS: PCP Internal Medicine; Referring Provider Internal Medicine Pulmonary Disease; Visit Provider Internal Medicine Pulmonary Disease
DX: R91.1 Solitary pulmonary nodule (principal)
CPT/HCPCS: 71250

== ENCOUNTER → 2021-03-10 12:46 | Outpatient (CLI) | payer MEDICARE, SELFPAY ==
--- NOTE | 2021-03-10 12:49 | CT_ITS ---
STUDY: CT CHEST WITHOUT CONTRAST REASON FOR EXAM: Male, 80 years old. LUNG NODULE RADIATION DOSAGE (If Supplied By Facility): CTDIvol = ( 10.45 ) mGy, DLP = ( 357.84 ) mGycm TECHNIQUE: Transaxial imaging was performed without the administration of intravenous contrast material. Multiplanar coronal and sagittal images were reformatted. Individualized dose optimization techniques were used for this CT. COMPARISON: Comparison is made with prior study 02/11/2020. FINDINGS: Small bilateral benign-appearing axillary Stable scattered bilateral calcified granulomas. Once again, there are 2 adjacent 3 mm noncalcified nodules seen in the anterior aspect of the right middle lobe. There is no demonstrated pleural abnormality. There are calcifications of the coronary arteries. There are multiple small lymph nodes within the mediastinum, which are normal in size and morphology most compatible with reactive lymph hyperplasia. Calcified left hilar lymph nodes. Normal unenhanced pulmonary arteries. There is atherosclerotic calcification of the aortic arch with tortuosity and elongation of the aortic arch and descending thoracic aorta. There are multi-level degenerative changes of the thoracic spine. Small hiatal hernia. Fatty infiltration of liver. Patient status post cholecystectomy. CT/Chest without Contrast IMPRESSION: Stable examination. Electronically Signed: Carlos Eduardo Marr MD at 15:19 EDT , Service support ,
== END ==
PROVIDERS: PCP Internal Medicine; Referring Provider Internal Medicine Pulmonary Disease; Visit Provider Internal Medicine Pulmonary Disease
DX: R91.1 Solitary pulmonary nodule (principal)
CPT/HCPCS: 71250

== ENCOUNTER 2021-09-01 13:16 | Outpatient (CLI) | payer MEDICARE, SELFPAY ==
--- NOTE | 2021-09-01 13:18 | CT_ITS ---
STUDY: CT ABDOMEN AND PELVIS WITH CONTRAST REASON FOR EXAM: Male, 81 years old. GROSS HEMATURIA RADIATION DOSAGE (If Supplied By Facility): CTDIvol = ( 14.01 ) mGy, DLP = ( 1255.97 ) mGycm TECHNIQUE: Transaxial images were obtained from the dome of the diaphragm to the symphysis pubis without oral contrast. IV 100mL Isovue-300 was administered. Sagittal and coronal images were reconstructed. Individualized dose optimization techniques were used for this CT. COMPARISON: 04/17/2019 FINDINGS: The visualized lung bases are unremarkable. The visualized portions of the heart are within normal limits. There is decreased attenuation of the liver consistent with steatosis. There is non-visualization of the gallbladder, which may be secondary to either contraction or a prior cholecystectomy. Normal spleen. Normal pancreas. Normal bilateral adrenal glands. Right kidney is free of obstructive uropathy or solid renal lesion. Left kidney shows dilated calyces, UPJ and ureter along its entire course but there is no obstructing stone. There is however persistent abnormal soft tissue density in the pelvis which likely represents postsurgical scarring and is likely causing impingement upon the distal left ureter. Normal visualized stomach. Nondistended fluid-filled small bowel loops are noted consistent with ileus. Retained stool noted in the colon, scattered colonic diverticula without CT evidence of acute diverticulitis. The appendix is visualized and appears normal. Appendix seen on coronal recon images 57 through 63 Peripheral calcifications in the abdominal aorta with stable aneurysmal dilatation to 3.0 cm. No dissection or periaortic fluid. Normal inferior vena cava. There are scattered subcentimeter mesenteric and retroperitoneal lymph nodes. There is circumferential bladder wall thickening, there is stable presacral soft tissue density and fluid likely representing postsurgical or post therapy scarring. No interval change since the previous study. Normal abdominal wall. Degenerative and postsurgical changes in the lumbar spine pelvis. No acute fracture or suspicious osseous lesion. CT/Abdomen/Pelvis WITH Contrast IMPRESSION: Fatty liver, no discrete lesion There is dilatation of the left calyces, UPJ and ureter. No obstructive stone is noted. There is soft tissue density present in the presacral area and I suspect there is impingement upon or narrowing of the distal left ureter Small bowel ileus Chronic diverticulosis Peripheral calcifications in the abdominal aorta with aneurysmal dilatation to 3.0 cm. No evidence of dissection As mentioned above, there are stable nonspecific presacral soft tissue thickening and fluid suspect this is postsurgical Nonspecific circumferential bladder wall thickening suggests bladder outlet issues Degenerative bony changes Electronically Signed: Michael Dorsey MD at 14:23 EDT ,
[2021-09-01 13:41] LABS: CREATININE FINGERSTICK 1.2 mg/dL (0.70-1.30); EGFR FINGERSTICK > 60.0000 mL/min (>60)
== END 2021-09-01 23:59 | disposition home or self-care (01) ==
LOC: CT 13:16
PROVIDERS: PCP Internal Medicine; Referring Provider Urology; Visit Provider Urology
DX: R31.0 Gross hematuria (principal)
CPT/HCPCS: 74177; Q9967

== ENCOUNTER 2022-06-30 10:07 | Inpatient (IN) | payer MEDICARE, SELFPAY ==
[2022-06-30 10:11] VITALS: BP 97/57; PULSE 52; RESP 20; TEMP 35.6; O2SAT 100; BMI 24.1
--- NOTE | 2022-06-30 11:07 | EDS_ITS ---
HPI HPI - GI History of Present Illness Chief Complaint: Abd Pain Narrative Narrative: 81-year-old male with history of prostate cancer status postradiation therapy, AAA status postrepair, recent diagnosis of partial small bowel obstruction. Patient was seen at [facility] and was transferred to [facility] because they did not have any beds to keep him. Patient states he was admitted to the hospital for monitoring. Patient states he did not have a surgical consult. Patient states his pain improved and he was discharged home 06/28/2022. Today he woke up with abdominal pain which she describes as diffuse. He states has had bowel movements every day. He has small amounts of gas that is passing. He states he has been vomiting a little bit today. His pain started about 5:30 AM and he had a bowel movement at about 730. No fevers. Patient states that he did not want to go back to [facility] because it was too far from his home. He states that the only reason he was at [facility] is because nobody had beds and that was the only place that would take his insurance locally. [facility] Medical History (Updated 06/30/22 @ 13:[address] Ivon Perdue MD) AAA (abdominal aortic aneurysm) History of prostate cancer Hyperlipidemia Pelvic mass in male Peripheral arterial occlusive disease Prostate cancer PVD (peripheral vascular disease) Rectal mass Rheumatoid arthritis Spinal disease Home Medications acetaminophen 500 mg tablet 1,000 mg PO DAILY PRN PRN Pain Or Fever 05/13/19 [History Last Taken 05/06/19] Allergy/AdvReac Type Severity Reaction Status Date / Time aspirin Allergy Mild Bleeding Verified 06/30/22 10:13 Family History (Updated 06/30/22 @ 13:[address] Ivon Perdue MD) Brother Diabetes Mother Lymphoma Father Lymphoma Surgical History History of incisional hernia repair Hx of bilateral cataract extraction S/P AAA repair S/P prostatectomy S/P spinal fusion Social History (Updated 06/30/22 @ 13:[address] Ivon Perdue MD) household members: spouse Smoking Status: Former smoker how long ago did patient quit smokin ppd cigarette tobacco use x 34 years, quit age 49. alcohol intake: never substance use type: does not use caffeine: Yes ROS ROS ED Review of Systems ROS Unobtainable: Denies due to encephalopathy Constitutional Constitutional ED: Denies chills or fever(s) ENT ENT ED: Denies rhinorrhea or sore throat Cardiovascular Cardiovascular: Denies chest pain or palpitations Respiratory/Chest Respiratory/Chest: Denies cough or dyspnea Gastrointestinal Gastrointestinal: Reports abdominal pain, nausea and vomiting Genitourinary Genitourinary ED: Denies dysuria or hematuria Musculoskeletal Musculoskeletal: Denies arthralgias or back pain Integumentary Denies abscess Neurologic Neurologic: Denies headache(s) or paresthesias Psychiatric Psychiatric: Denies anxiety or depression EXAM Physical Exam Const Vital Signs: 06/30/22 10:11 Temperature 96.1 F L Temperature Source Temporal Pulse Rate 52 L Respiratory Rate 20 H Blood Pressure 97/57 L Blood Pressure Mean 70 Pulse Ox 100 Oxygen Delivery Method Room Air Positive well nourished General Appearance ED: Negative for pallor HEENT Reports moist mucous membranes Eyes PERRL and EOMs intact bilaterally General Eye ED: Negative for pale conjunctiva or scleral icterus Neck no lymphadenopathy Resp normal respiratory effort and clear to auscultation bilaterally Cardio regular rhythm GI GI Narrative: Diffusely tender to palpation. Back/Spine no CVA tenderness Extremity full ROM Neuro CN's II-XII intact bilaterally Sensorium / Orientation: alert Psych mental status grossly normal and thought process normal Skin General Skin Exam: Negative for jaundice or pallor MDM MDM MDM Narrative Medical decision making narrative: Patient was presenting with nausea and abdominal pain. He is concerned for small bowel obstruction. He was recently hospitalized for this and discharged. He does report that he is having bowel movements, he does report passing small amounts of gas. I did review the medical record and see that he was recently discharged. I obtained a CBC and CMP which were essentially normal. Urinalysis was negative for infection. CT of the abdomen pelvis shows concern for partial or early small bowel obstruction. Patient was discussed with Dr. Elmore who recommended an NG tube. This was placed and a KUB shows good placement of the NG tube on my interpretation. The radiologist are persistent agrees. Dr. Stephens recommended admitting him to medicine with a surgical consult. Discussed with hospitalist. Impression: 1. Abdominal pain 2. Nausea/vomiting 3. Partial small bowel obstruction Lab Data Attestation: I reviewed the patient's lab results. Labs: Laboratory Results - last 24 hr 06/30/22 06/30/2223 11:20 11:20 12:25 WBC 6.6 RBC 5.20 Hgb 13.9 Hct 43.3 MCV 83.3 MCH 26.7 L MCHC 32.1 RDW Std Deviation 40.7 RDW Coeff of Willie 13.4 Plt Count MPV 10.9 Immature Gran % (Auto) 0.600 Neut % (Auto) 81.1 H Lymph % (Auto) 11.6 L [place] % (Auto) 5.6 Eos % (Auto) 0.8 Baso % (Auto) 0.3 Absolute Neuts (auto) 5.4 Absolute Lymphs (auto) 0.77 L Nucleated RBC % 0 Platelet Estimate ADEQUATE Sodium 138 Potassium 4.4 Chloride 108 H Carbon Dioxide 24.0 Anion Gap 6 BUN 16 Creatinine 0.99 Estim Creat Clear Calc 50.04 Est GFR (MDRD) Af Amer 93 Est GFR (MDRD) Non-Af 77 BUN/Creatinine Ratio 16.2 Glucose 127 H Calcium 9.1 Total Bilirubin 0.50 AST 22 ALT 24 Alkaline Phosphatase 37 L Total Protein 6.8 Albumin 3.3 Globulin 3.5 Albumin/Globulin Ratio 0.9 Lipase 137 Urine Color Yellow Urine Clarity Clear Urine pH 6.0 Ur Specific [place] 1.020 Urine Protein 30 H Urine Glucose (UA) Normal Urine Ketones 5 H Urine Occult Blood 250 H Urine Nitrite Negative Urine Bilirubin Negative Urine Urobilinogen Normal Ur Leukocyte Esterase 25 H Urine RBC 25-50 SEEN Urine WBC 0-5 SEEN Ur Squamous Epith Cells 0 SEEN Urine Bacteria 0 SEEN Urine Mucus 0 SEEN Radiography Diagnostic Testing: Clinical Impression(s) from Imaging Studies Abdomen/Pelvis CT 06/30/22 11:09 IMPRESSION: Stable small cyst in the lower pole of the right kidney. Fatty infiltration of the liver. Stable appearance of the abdominal aorta. Dilatation of the ileal loops of small bowel suggestive of early small bowel obstruction or partial small bowel obstruction. Persistent posterior pelvic soft tissue density and presacral soft tissue density. Electronically Signed: Carlos Eduardo Marr MD at 12:49 EST , KUB X-Ray 06/30/22 13:30 IMPRESSION: The tip of the nasogastric tube is in the fundal portion of the stomach. Electronically Signed: Carlos Eduardo Marr MD at 14:00 EST , Discharge Plan Triage Chief Complaint: Abd Pain ED Provider: Tre Phillips Dx/Rx/DC Orders Prescriptions: No Action acetaminophen 500 MG tablet 1,000 mg PO DAILY PRN PRN (Reason: Pain Or Fever) Primary Care Provider: Kaylan Webb Referrals: Kaylan Webb MD [Primary Care Provider] -
--- NOTE | 2022-06-30 11:09 | CT_ITS ---
STUDY: CT ABDOMEN AND PELVIS WITH CONTRAST REASON FOR EXAM: Male, 81 years old. Bowel obstruction RADIATION DOSAGE (If Supplied By Facility): CTDIvol = ( 17.71 ) mGy, DLP = ( 843.32 ) mGycm TECHNIQUE: Transaxial images were obtained from the dome of the diaphragm to the symphysis pubis without oral contrast. IV 100mL Isovue-300 was administered. Sagittal and coronal images were reconstructed. Individualized dose optimization techniques were used for this CT. COMPARISON: Comparison is made with prior study 09/01/2021. FINDINGS: The visualized lung bases are unremarkable. Coronary artery calcification. There is decreased attenuation of the liver consistent with steatosis. Subcentimeters cyst in the medial aspect of the left lobe of the liver. There are surgical clips in the gallbladder fossa consistent with a prior cholecystectomy. Normal spleen. Normal pancreas. Normal bilateral adrenal glands. Stable small renal cysts.. Normal left kidney. There is a small hiatal hernia. Mild degree of small bowel dilatation of the ileal loops. The jejunal loops are not distended at this time. This may represent either an incomplete small bowel obstruction or early small bowel obstruction. Follow-up is recommended. A moderate amount of fecal material is seen in the right hemicolon. Scattered sigmoid diverticula. The appendix is visualized and appears normal. There is diffuse atherosclerotic calcification of the abdominal aorta and its major visceral branches. Minimally aneurysmal dilatation of the infrarenal abdominal aorta up to 3 cm with mural thrombus. Normal inferior vena cava. Normal retroperitoneum. The urinary bladder is contracted. Stable soft tissue density in the posterior pelvis extending into the presacral space. This most likely represents changes secondary to surgical intervention and possible radiation therapy. Normal abdominal wall. There are diffuse degenerative changes of the visualized lumbar spine. Prior to screw and joanie fixation at the L2-L3 and L3-L4 levels. Multilevel spondylosis and disc space narrowing. 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 CT/Abdomen/Pelvis W IV Cont ONLY IMPRESSION: Stable small cyst in the lower pole of the right kidney. Fatty infiltration of the liver. Stable appearance of the abdominal aorta. Dilatation of the ileal loops of small bowel suggestive of early small bowel obstruction or partial small bowel obstruction. Persistent posterior pelvic soft tissue density and presacral soft tissue density. Electronically Signed: Carlos Eduardo Marr MD at 12:49 EST ,
[2022-06-30 11:30] LABS: Absolute Lymphocyte Count 0.77 X10^3/uL (0.83-4.51); Absolute Neutrophil Count 5.4 X10^3/uL (2.0-7.7); Basophil# 0.02 X10^3/uL; Basophil% 0.3 % (0-1); Eosinophil# 0.05 X10^3/uL; Eosinophils% 0.8 % (0-5); Hematocrit 43.3 % (40-54); Hemoglobin 13.9 g/dL (13.0-16.5); Lymphocyte # 0.77 X10^3/ul (0.83-4.51); Lymphocyte % 11.6 % (19-41); Mean Corp Hgb Conc 32.1 g/dL (32-36); Mean Corpuscular Hgb 26.7 pg (27.0-32.0); Mean Corpuscular Volume 83.3 fL (80-94); Mean Platelet Vol. 10.9 fl (6.2-12.0); Monocyte# 0.37 X10^3/uL; Monocyte% 5.6 % (0-10); NRBC Flagged by Analyzer 0 % (0-5); Neutrophil # 5.36 X10^3/uL (2.7-7.7); Neutrophil % 81.1 % (47-70); POSITIVE COUNT YES; RBC Distribution Width CV 13.4 % (11.6-14.6); RBC Distribution Width SD 40.7 fl (35.1-43.9); White Blood Count 6.6 K/mm3 (4.4-11.0)
[2022-06-30 11:46] LABS: ALB/GLOB Ratio 0.9 RATIO (0.9-2.4); AST(SGOT) 22 U/L (15-37); Alanine Aminotransfer ALT/SGPT 24 U/L (16-61); Albumin, Serum 3.3 g/dL (3.2-5.0); Alkaline Phosphatase 37 U/L (45-117); Anion Gap 6 (5-15); BUN 16 mg/dL (7-18); BUN/Creat Ratio 16.2 RATIO (10-20); Calcium,Total 9.1 mg/dL (8.5-10.1); Chloride 108 mmol/L (98-107); Creatinine, Serum 0.99 mg/dL (0.70-1.30); EST Glomerular Filtration Rate 77 mL/min (>60); Est Glom Filt Rate - Afr Amer 93 mL/min (>60); Estimated Creatinine Clearance 50.04 ml/min; Globulin 3.5 g/dL (2.2-4.2); Glucose 127 mg/dL (74-106); Lipase 137 U/L (73-393); Potassium 4.4 mmol/L (3.5-5.1); Protein, Total 6.8 g/dL (6.4-8.2); Sodium Level 138 mmol/L (136-145)
[2022-06-30 11:55] LABS: Differential Indicated SCAN CRITERIA MET; Platelet Estimate ADEQUATE (ADEQ)
[2022-06-30 12:28] LABS: Bacteria 0 SEEN /hpf (None Seen); Mucous, Urine 0 SEEN /hpf (<or=2+); Squamous Epithelial Cells - UA 0 SEEN /hpf (0-5)
[2022-06-30 12:32] LABS: Color, Urine Yellow (Yellow); Glucose, Dipstick Normal (Normal); Ketone-Dipstick 5 mg/dl (Negative); Leukocyte Esterase-Dipstick 25 /ul (Negative); Nitrite-Dipstick Negative (Negative); Occult Blood-Urine 250 /ul (Negative); Protein-Dipstick 30 mg/dl (Negative); Urine Bilirubin Dipstick Negative (Negative); Urine Clarity Clear (Clear); Urine Urobilinogen Normal (Normal)
[2022-06-30 12:43] LABS: Red Blood Cells-Urine 25-50 SEEN /hpf (0-5); White Blood Cells 0-5 SEEN /hpf (0-5)
[2022-06-30] MEDS: Lidocaine Jelly 2% 20 ML Syringe (URO-JET) 1 APPLIC TOPICAL (13:30)
--- NOTE | 2022-06-30 13:30 | RAD_ITS ---
STUDY: X-RAY - ABDOMEN/PELVIS REASON FOR EXAM: Male, 81 years old. Check ng -- NG/OG Verification TECHNIQUE: Single AP view of the abdomen / pelvis. COMPARISON: None. FINDINGS: The tip of the nasogastric tube is in the fundal portion of the stomach. Moderate amount of fecal material is seen in the right hemicolon. Dilated small bowel loop in the left mid abdomen. RAD/Abdomen Single View (Portable) IMPRESSION: The tip of the nasogastric tube is in the fundal portion of the stomach. Electronically Signed: Carlos Eduardo Marr MD at 14:00 EST ,
[2022-06-30 14:54] VITALS: BP 97/57; PULSE 52; RESP 20; TEMP 36; O2SAT 100
--- NOTE | 2022-06-30 14:55 | PCM.HP.STD ---
HPI - General General Date of Admission: 06/30/22 Date of Service: 06/30/22 Chief Complaint: Abdominal pain, nausea, similar to recent pSBO presentation. HPI Narrative The patient is an 81 y/o M w/ PMHx: Hx DVT/PE, Hx AAA s/p repair, Hx Prostate CA s/p prostatectomy, PAOD, Rheumatoid arthritis, Former tobacco use, CKD stage III unclear subtype, Hx VTE (DVT, PE), HLD intolerant to statins, Known pelvic mass who presents to the [facility] ED on 06/30/22 with history of prior onset of diffuse cramping abdominal pain with associated nausea prompting ED evaluation at [facility] at that time however there were no beds therefore he was transferred to [facility] and treated for pSBO with resolution of discomfort Sunday of the prior week until Sunday of this week with per his report no NGT placed at that time and upon discharge tolerating food with flatus and BMs; however, he had recurrent similar pain starting at ~ 5:30 am on day of presentation with diffuse sharp abdominal cramping pain (rated initially 7-8/10 prior to NGT placement in the ED, now pain 3/10) with recurrent nausea without emesis prompting ED re-evaluation. He does report decreased flatus but notes he has been having bowel movements despite this presentation. Work-up in the ED included T96.1, heart rate 52, BP 97/57, respiratory rate 20, 100% room air, CBC with WC 6.6, hemoglobin 13.9, platelet count not reported secondary to clumping without any marked left shift with lymphopenia, CMP with chloride 108, glucose 127, alk phos 37 otherwise not marked appearing, lipase 137, urinalysis with specific gravity 1.020, protein 30, ketone 5, occult blood 250, negative nitrite, leukocyte Estrace 25, urine 25-50 RBC, CT abdomen and pelvis with a stable small cyst in the lower pole of the right kidney, fatty infiltration of the liver, stable appearing abdominal aorta status post repair, dilatation of ileal loops of small bowel suggestive of early small bowel obstruction or partial small bowel obstruction, persistent posterior pelvic soft tissue density and parasacral soft tissue density which is known. In the ED patient administered Afrin spray in preparation for NG tube placement. ED discussed case with Dr. Elmore. [facility] Medical History (Updated 06/30/22 @ 13:[address] Ivon Perdue MD) AAA (abdominal aortic aneurysm) History of prostate cancer Hyperlipidemia Pelvic mass in male Peripheral arterial occlusive disease Prostate cancer PVD (peripheral vascular disease) Rectal mass Rheumatoid arthritis Spinal disease Home Medications acetaminophen 500 mg tablet 1,000 mg PO DAILY PRN PRN Pain Or Fever 05/13/19 [History Last Taken 05/06/19] Allergy/AdvReac Type Severity Reaction Status Date / Time aspirin Allergy Mild Bleeding Verified 06/30/22 10:13 Family History (Updated 06/30/22 @ 13:[address] Ivon Perdue MD) Brother Diabetes Mother Lymphoma Father Lymphoma Surgical History History of incisional hernia repair Hx of bilateral cataract extraction S/P AAA repair S/P prostatectomy S/P spinal fusion Social History (Updated 06/30/22 @ 13:[address] Ivon Perdue MD) household members: spouse Smoking Status: Former smoker how long ago did patient quit smokin ppd cigarette tobacco use x 34 years, quit age 49. alcohol intake: never substance use type: does not use caffeine: Yes ROS ROS Narrative Admission Review of Systems: CONSTITUTIONAL: No weight loss, fever, chills, + weakness or fatigue. HEENT: Eyes: No visual loss, blurred vision, double vision or yellow sclerae. Ears, Nose, Throat: No hearing loss, sneezing, congestion, runny nose or sore throat. SKIN: No rash or itching, lesions, wounds. CARDIOVASCULAR: No chest pain, chest pressure or chest discomfort, palpitations, edema, orthopnea, syncopal events. RESPIRATORY: No shortness of breath, cough or sputum, wheezing, hemoptysis. GASTROINTESTINAL: + anorexia, nausea without vomiting, abdominal pain, No melena, BRBPR. GENITOURINARY: No dysuria, frequency, urgency or retention. NEUROLOGICAL: No headache, dizziness, syncope, paralysis, ataxia, numbness or tingling in the extremities, focal weakness, change in bowel or bladder control, seizure. MUSCULOSKELETAL:+ muscle, back pain, joint pain or stiffness. HEMATOLOGIC: No anemia, bleeding or bruising. LYMPHATICS: No enlarged nodes. No history of splenectomy. PSYCHIATRIC: No history of depression or anxiety. ENDOCRINOLOGIC: No reports of sweating, cold or heat intolerance. No polyuria or polydipsia. ALLERGIES: No history of asthma, hives, eczema or rhinitis. Vital Signs Vital Signs Vital Signs: 06/30/22 10:11 Temperature 96.1 F L Temperature Source Temporal Pulse Rate 52 L Respiratory Rate 20 H Blood Pressure 97/57 L Blood Pressure Mean 70 Pulse Ox 100 Oxygen Delivery Method Room Air Weight Weight: 145 lb Body Mass Index (BMI) 24.1 Physical Exam Narrative Physical Examination: General: Awake, alert, oriented x 3 and cooperative, seated upright in the ED bed, fatigued, NGT recently placed. Skin: Normal color, normal turgor, no icterus, no cyanosis. HEENT: AT/NC, EOMI, PERRLA, dry MM, NGT in place, no carotid bruits or JVD noted. Lungs: Mildly diminished, > bases, appropriate effort, no rales, ronchi or wheezing. Heart: Mildly bradycardic with regular rhythm; no gallop, rub audible. Abdomen: Tense, diffuse TTP with voluntary guarding, notes pain improved since initial ED presentation, absent BS, difficult to assess HSM secondary to acute pain. Extremities: No cyanosis, clubbing, or edema. Neurological: Patient awake, alert, oriented as noted, cognitive function intact; pupils equally reactive to light and accommodation, cranial nerves II-XII grossly normal, moving all 4 extremities, no focal deficits, strength moderately to severely globally decreased secondary to acute presentation complaints. Psychiatric: Affect appears fatigued, uncomfortable, no acute evidence of depressive or anxiety feelings. Results Lab / Micro Data Result Diagrams: 06/30/22 11:20 06/30/22 11:20 Labs: Laboratory Results - last 24 hr 06/30/22 11:20: WBC 6.6, RBC 5.20, Hgb 13.9, Hct 43.3, MCV 83.3, MCH 26.7 L, MCHC 32.1, RDW Std Deviation 40.7, RDW Coeff of Willie 13.4, Plt Count , MPV 10.9, Immature Gran % (Auto) 0.600, Neut % (Auto) 81.1 H, Lymph % (Auto) 11.6 L, [place] % (Auto) 5.6, Eos % (Auto) 0.8, Baso % (Auto) 0.3, Absolute Neuts (auto) 5.4, Absolute Lymphs (auto) 0.77 L, Nucleated RBC % 0, Platelet Estimate ADEQUATE 06/30/22 11:20: Sodium 138, Potassium 4.4, Chloride 108 H, Carbon Dioxide 24.0, Anion Gap 6, BUN 16, Creatinine 0.99, Estim Creat Clear Calc 50.04, Est GFR (MDRD) Af Amer 93, Est GFR (MDRD) Non-Af 77, BUN/Creatinine Ratio 16.2, Glucose 127 H, Calcium 9.1, Total Bilirubin 0.50, AST 22, ALT 24, Alkaline Phosphatase 37 L, Total Protein 6.8, Albumin 3.3, Globulin 3.5, Albumin/Globulin Ratio 0.9, Lipase 137 06/30/22 12:25: Urine Color Yellow, Urine Clarity Clear, Urine pH 6.0, Ur Specific [place] 1.020, Urine Protein 30 H, Urine Glucose (UA) Normal, Urine Ketones 5 H, Urine Occult Blood 250 H, Urine Nitrite Negative, Urine Bilirubin Negative, Urine Urobilinogen Normal, Ur Leukocyte Esterase 25 H, Urine RBC 25-50 SEEN, Urine WBC 0-5 SEEN, Ur Squamous Epith Cells 0 SEEN, Urine Bacteria 0 SEEN, Urine Mucus 0 SEEN Radiology Impression Abdomen/Pelvis CT 06/30/22 11:09 IMPRESSION: Stable small cyst in the lower pole of the right kidney. Fatty infiltration of the liver. Stable appearance of the abdominal aorta. Dilatation of the ileal loops of small bowel suggestive of early small bowel obstruction or partial small bowel obstruction. Persistent posterior pelvic soft tissue density and presacral soft tissue density. Electronically Signed: Carlos Eduardo Marr MD at 12:49 EST , Assessment & Plan Assessment/Plan (1) Bowel obstruction: PLAN: Plan The patient is an 81 y/o M w/ PMHx: Hx DVT/PE, Hx AAA s/p repair, Hx Prostate CA s/p prostatectomy, PAOD, Rheumatoid arthritis, Former tobacco use, CKD stage III unclear subtype, Hx VTE (DVT, PE), HLD intolerant to statins, Known pelvic mass who presents to the [facility] ED on 06/30/22 with history of ~ 1 week prior onset of diffuse cramping abdominal pain with associated nausea prompting ED evaluation in [facility] at that time however there were no beds therefore he was transferred to [facility] and treated for pSBO with resolution of discomfort; however, he had recurrent similar pain starting at ~ 5:30 am on day of presentation with diffuse abdominal cramping pain with recurrent nausea without emesis prompting ED re-evaluation. #1. Abdominal pain, nausea, emesis w/ SBO: Will admit to [facility], maintain on IVFs, continue NGT to suction, strict I&Os, IV pain/anti-emetics PRN, serial KUB as needed to montior bowel function, Famotidine IV, maintain NPO on bowel rest. General surgery Dr. Elmore consulted, pending. Records from [facility] requested for Surgery. #2. PAOD: Patient following w/ Dr. Maurer, noted 05/07/19 visit at [facility] reproted 03/31/19 ZACH/PVR suggestive right femoral biphasic right popliteal biphasic right posterior tibial triphasic and right dorsalis pedis monophasic with a right ankle-brachial index of 0.89, left femoral popliteal posterior tib and dorsalis pedis waveforms are all monophasic, left ZACH was 0.61, PPG waveform of the right great digit was normal, PPG waveform for the left great digit was normal. Also, carotid US at that same time with noted less than 50% stenosis of the right internal carotid and less than 50% stenosis of the left internal carotid. Once able we will resume aspirin therapy, unfortunately statin intolerant, currently BP low thus would not initiate any hypertensive regimen and does not have history either. #3. Hx AAA: s/p repair open aortic aneurysm, [facility] in 2008, not on regimen, given NPO will hold on oral regimen but once appropriate will resume ASA therapy, statin intolerant. #4. Former tobacco use: Patient with 2 ppd x 34 history, quitting age 49, encourage continued tobacco cessation. #5. Prostate CA with known pelvic mass, ongoing outpatient evaluation: s/p prostatectomy, known pelvic mass with CT abdomen and pelvis upon current presentation with persistent posterior pelvic soft tissue density and presacral soft tissue density, following w/ Dr. Haywood, encourage continued outpatient follow-up. #6. Rheumatoid arthritis: Previously per prior records on [facility] and following with rheumatology but since off regimen secondary to cost, encourage continued follow-up outpatient. #7. History of VTE: Patient with prior reported history DVT, possibly PE, treated outpatient with apixaban which he is no longer on at this time. #8. Hyperlipidemia: Statin intolerance noted. #9. Chronic Kidney Disease Stage III, unclear subtype: Admission BUN/Cr 16/0.99, baseline renal function similar, repeat BMP in AM. #10. DVT prophylaxis: SCDs, Lovenox. #11. CODE status: Patient HCPOA is his was present and living will is currently in place. Discussed CODE status at length including difference between FULL code, DNR-CCA and DNR-CC status. Following discussions about the differences in these status, requested DNR-CCA, no intubation which was confirmed twice. Encouraged the patient and his also to set up a secondary HCPOA. They note having two children. Reported that often people may choose one to be HCPOA and the other FPOA. Advanced Care Planning Face to Face Time: 18 minutes. Admission Evaluation Time spent evaluating chart, patient history, patient evaluation, care planning and discussion with specialists: 75 minutes. Charges/Coding Visit Charges Inpatient E&M: 38057 Init Hosp L3 Procedures Hospitalists Procedures: 86130 Advncd Care Plan 30 Min
[2022-06-30 15:03] VITALS: BMI 25.0
[2022-06-30 15:20] VITALS: BP 172/64; PULSE 68; RESP 18; TEMP 36.4; O2SAT 95
[2022-06-30] MEDS: 0.9% Normal Saline 1,000 ML 100 ML IV (15:32)
[2022-06-30] MEDS: 0.9% Saline Lock 10 ML Syringe IV (15:32)
[2022-06-30] MEDS: Famotidine 200 MG/20 ML MDV 20 MG in 0.9% Normal Saline (Pres. free 8 ML 300 MG IV ×2 (15:39→21:03)
[2022-06-30 16:09] VITALS: O2SAT 95
--- NOTE | 2022-06-30 17:47 | CON.PCM.SX_ITS ---
Assessment & Plan Assessment/Plan (1) Pelvic mass in male: PLAN: Patient has known enlarged lymph nodes that are suspicious for recurrence of prostate disease. He was also evaluated in 2019 for [address] Coyle for rectal narr owing/stricture (6 cm from anal verge - according to Dr. Coyle's note) due to his prostate cancer treatment, but patient declined at the time. I told patient that if this present acute bowel obstruction does not resolve - he will require a colostomy. However, I suspect that he will not require latonya joy in this admission. Continue present therapy - IV hydration, NG tube decompression. HPI Consult Data Date of Consult: 06/30/22 HPI Narrative Reason for Consultation: abdominal pain HPI Narrative: BROOKE ALICIA, is a 81 M who presents with abdominal pain. I was asked by Dr. Ivon Perdue for consultation of this patient. He notes loose bowel movements and last had a bowel movement this morning. He denies noting blood in his stools. He last had flatus last night. He presented with severe generalized abdominal pain, but feels much better with NG tube decompression. He states that he has never been hospitalized for bowel obstruction prior to this. He denies nausea/emesis at this point. 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 He was offered colon surgery by Dr. Coyle of the [facility] in 2019 for this, but patient declined. His workup at the time - attempted endoscopy but could not advance beyond stricture; MRI scan enlarged pelvic lymph nodes c/w metastatic disease; barium enema (thin) - stricture - no other obvious lesions. Stricture is noted to be at 6 cm from anal verge as documented by Dr. Coyle. [facility] Medical History AAA (abdominal aortic aneurysm) History of prostate cancer Hyperlipidemia Pelvic mass in male Peripheral arterial occlusive disease Prostate cancer PVD (peripheral vascular disease) Rectal mass Rheumatoid arthritis Spinal disease Home Medications acetaminophen 500 mg tablet 1,000 mg PO DAILY PRN PRN Pain Or Fever 05/13/19 [History Last Taken 05/06/19] Allergy/AdvReac Type Severity Reaction Status Date / Time aspirin Allergy Mild Bleeding Verified 06/30/22 10:13 Family History Brother Diabetes Mother Lymphoma Father Lymphoma Surgical History History of incisional hernia repair Hx of bilateral cataract extraction S/P AAA repair S/P prostatectomy S/P spinal fusion Social History household members: spouse Smoking Status: Former smoker how long ago did patient quit smokin ppd cigarette tobacco use x 34 years, quit age 49. alcohol intake: never substance use type: does not use caffeine: Yes ROS Constitutional Constitutional: Denies fever(s) Eyes Eyes: Denies loss of vision ENT HEENT: Denies dysphagia Cardiovascular Cardiovascular: Denies chest pain at rest Respiratory/Chest Respiratory/Chest: Denies productive cough or shortness of breath at rest Gastrointestinal Gastrointestinal: Reports systems reviewed and no addt'l complaints, except as documented Genitourinary Genitourinary: Denies hematuria Musculoskeletal Musculoskeletal: Denies abnormal gait Integumentary Integumentary: Denies jaundice Neurologic Neurologic: Denies loss of vision Hematologic/Lymphatic Hematologic/Lymphatic: Denies easy bleeding Physical Exam Const alert and oriented x3 General Appearance: cooperative HEENT normocephalic HEENT Narrative: NG tube in place Eyes General Eye: normal appearance of both eyes Neck supple Resp normal respiratory effort Effort and Inspection: able to speak in complete sentences Cardio Rate: regular rate GI soft to palpation Extremity no calf tenderness Skin no jaundice Medical Records Data Attestation: I reviewed the patient's medical records Lab / Micro Data Attestation: I reviewed the patient's lab results. Result Diagrams: 06/30/22 11:20 06/30/22 11:20 Labs: Laboratory Results - last 24 hr 06/30/22 11:20: WBC 6.6, RBC 5.20, Hgb 13.9, Hct 43.3, MCV 83.3, MCH 26.7 L, MCHC 32.1, RDW Std Deviation 40.7, RDW Coeff of Willie 13.4, Plt Count , MPV 10.9, Immature Gran % (Auto) 0.600, Neut % (Auto) 81.1 H, Lymph % (Auto) 11.6 L, [place] % (Auto) 5.6, Eos % (Auto) 0.8, Baso % (Auto) 0.3, Absolute Neuts (auto) 5.4, Absolute Lymphs (auto) 0.77 L, Nucleated RBC % 0, Platelet Estimate ADEQUATE 06/30/22 11:20: Sodium 138, Potassium 4.4, Chloride 108 H, Carbon Dioxide 24.0, Anion Gap 6, BUN 16, Creatinine 0.99, Estim Creat Clear Calc 50.04, Est GFR (MDRD) Af Amer 93, Est GFR (MDRD) Non-Af 77, BUN/Creatinine Ratio 16.2, Glucose 127 H, Calcium 9.1, Total Bilirubin 0.50, AST 22, ALT 24, Alkaline Phosphatase 37 L, Total Protein 6.8, Albumin 3.3, Globulin 3.5, Albumin/Globulin Ratio 0.9, Lipase 137 06/30/22 12:25: Urine Color Yellow, Urine Clarity Clear, Urine pH 6.0, Ur Specif ic [place] 1.020, Urine Protein 30 H, Urine Glucose (UA) Normal, Urine Ketones 5 H, Urine Occult Blood 250 H, Urine Nitrite Negative, Urine Bilirubin Negative, Urine Urobilinogen Normal, Ur Leukocyte Esterase 25 H, Urine RBC 25-50 SEEN, Urine WBC 0-5 SEEN, Ur Squamous Epith Cells 0 SEEN, Urine Bacteria 0 SEEN, Urine Mucus 0 SEEN Radiology Impression Abdomen/Pelvis CT 06/30/22 11:09 IMPRESSION: Stable small cyst in the lower pole of the right kidney. Fatty infiltration of the liver. Stable appearance of the abdominal aorta. Dilatation of the ileal loops of small bowel suggestive of early small bowel obstruction or partial small bowel obstruction. Persistent posterior pelvic soft tissue density and presacral soft tissue density. Electronically Signed: Carlos Eduardo Marr MD at 12:49 EST , KUB X-Ray 06/30/22 13:30 IMPRESSION: The tip of the nasogastric tube is in the fundal portion of the stomach. Electronically Signed: Carlos Eduardo Marr MD at 14:00 EST ,
[2022-06-30 20:51] VITALS: BP 167/59; PULSE 66; RESP 18; TEMP 36.6; O2SAT 96
[2022-06-30 21:02] VITALS: BP 167/59; PULSE 66
[2022-06-30] MEDS: hydrALAZINE 20 MG/ML Vial 10 MG IV (21:02)
[2022-06-30] MEDS: Morphine 2 MG/ML Syringe IV (22:18)
[2022-06-30] MEDS: Ondansetron 4 MG/2 ML Vial IV (22:26)
[2022-07-01] MEDS: 0.9% Normal Saline 1,000 ML 100 ML IV (01:35)
[2022-07-01 02:34] VITALS: BP 134/58; PULSE 71; RESP 18; TEMP 36.6; O2SAT 96
--- NOTE | 2022-07-01 06:35 | RAD_ITS ---
STUDY: X-RAY - ABDOMEN/PELVIS REASON FOR EXAM: Male, 81 years old. pSBO TECHNIQUE: Single AP view of the abdomen / pelvis. COMPARISON: 06/30/2022 FINDINGS: Nasogastric tube with the tip in the left upper quadrant likely in the fundus of the stomach. Excreted contrast within the bladder. There is an unremarkable bowel gas pattern. The visualized liver, spleen and kidneys are grossly normal in size and morphology. Normal soft tissue structures. Mild dextroscoliosis of the lumbar spine with degenerative disc disease. Status post transpedicular fixation the lower lumbar spine. RAD/Abdomen Single View (Portable) IMPRESSION: 1. Nasogastric tube with the tip in the left upper quadrant likely in the fundus the stomach. 2. No bowel obstruction. Electronically Signed: Stevan Caal MD at 8:13 EST ,
[2022-07-01 07:19] LABS: Absolute Lymphocyte Count 1.53 X10^3/uL (0.83-4.51); Absolute Neutrophil Count 4.4 X10^3/uL (2.0-7.7); Basophil# 0.03 X10^3/uL; Basophil% 0.4 % (0-1); Eosinophil# 0.15 X10^3/uL; Eosinophils% 2.2 % (0-5); Hematocrit 40.9 % (40-54); Hemoglobin 12.9 g/dL (13.0-16.5); Lymphocyte # 1.53 X10^3/ul (0.83-4.51); Lymphocyte % 22.8 % (19-41); Mean Corp Hgb Conc 31.5 g/dL (32-36); Mean Corpuscular Hgb 26.5 pg (27.0-32.0); Monocyte# 0.53 X10^3/uL; Monocyte% 7.9 % (0-10); NRBC Flagged by Analyzer 0 % (0-5); Neutrophil # 4.44 X10^3/uL (2.7-7.7); Neutrophil % 66.3 % (47-70); Platelet Count 195 K/mm3 (150-450); RBC Distribution Width CV 13.9 % (11.6-14.6); RBC Distribution Width SD 42.5 fl (35.1-43.9); Red Blood Count 4.87 M/mm3 (4.6-6.2); White Blood Count 6.7 K/mm3 (4.4-11.0)
--- NOTE | 2022-07-01 07:45 | PCM.PN.HOSP ---
Objective Data Objective Data Vital Signs: Vital Signs Temp Pulse Resp BP Pulse Ox O2 Del Method 98 F 71 18 134/58 H 96 Room Air 07/01/22 02:34 07/01/22 02:34 07/01/22 02:34 07/01/22 02:34 07/01/22 02:34 07/01/22 02:34 Oxygen Delivery Method Room Air Weight: 154 lb 1.65 oz Body Mass Index (BMI) 25.0 Intake & Output: Intake and Output for Last 24 Hours 06/29/22 06/30/22 07/01/22 23:59 23:59 23:59 Intake Total 80 / 80 1030 / 1030 Output Total 600 / 600 1300 / 1300 Balance -520 / -520 -270 / -270 Lab / Micro Data Result Diagrams: 07/01/22 06:58 06/30/22 11:20 Labs: Laboratory Results - last 24 hr 06/30/22 11:20: WBC 6.6, RBC 5.20, Hgb 13.9, Hct 43.3, MCV 83.3, MCH 26.7 L, MCHC 32.1, RDW Std Deviation 40.7, RDW Coeff of Willie 13.4, Plt Count , MPV 10.9, Immature Gran % (Auto) 0.600, Neut % (Auto) 81.1 H, Lymph % (Auto) 11.6 L, [place] % (Auto) 5.6, Eos % (Auto) 0.8, Baso % (Auto) 0.3, Absolute Neuts (auto) 5.4, Absolute Lymphs (auto) 0.77 L, Nucleated RBC % 0, Platelet Estimate ADEQUATE 06/30/22 11:20: Sodium 138, Potassium 4.4, Chloride 108 H, Carbon Dioxide 24.0, Anion Gap 6, BUN 16, Creatinine 0.99, Estim Creat Clear Calc 50.04, Est GFR (MDRD) Af Amer 93, Est GFR (MDRD) Non-Af 77, BUN/Creatinine Ratio 16.2, Glucose 127 H, Calcium 9.1, Total Bilirubin 0.50, AST 22, ALT 24, Alkaline Phosphatase 37 L, Total Protein 6.8, Albumin 3.3, Globulin 3.5, Albumin/Globulin Ratio 0.9, Lipase 137 06/30/22 12:25: Urine Color Yellow, Urine Clarity Clear, Urine pH 6.0, Ur Specific [place] 1.020, Urine Protein 30 H, Urine Glucose (UA) Normal, Urine Ketones 5 H, Urine Occult Blood 250 H, Urine Nitrite Negative, Urine Bilirubin Negative, Urine Urobilinogen Normal, Ur Leukocyte Esterase 25 H, Urine RBC 25-50 SEEN, Urine WBC 0-5 SEEN, Ur Squamous Epith Cells 0 SEEN, Urine Bacteria 0 SEEN, Urine Mucus 0 SEEN 07/01/22 06:58: WBC 6.7, RBC 4.87, Hgb 12.9 L, Hct 40.9, MCV 84.0, MCH 26.5 L, MCHC 31.5 L, RDW Std Deviation 42.5, RDW Coeff of Willie 13.9, Plt Count 195, MPV 10.0, Immature Gran % (Auto) 0.400, Neut % (Auto) 66.3, Lymph % (Auto) 22.8, [place] % (Auto) 7.9, Eos % (Auto) 2.2, Baso % (Auto) 0.4, Absolute Neuts (auto) 4.4, Absolute Lymphs (auto) 1.53, Nucleated RBC % 0 Radiography Diagnostic Testing: Radiology Impression Abdomen/Pelvis CT 06/30/22 11:09 IMPRESSION: Stable small cyst in the lower pole of the right kidney. Fatty infiltration of the liver. Stable appearance of the abdominal aorta. Dilatation of the ileal loops of small bowel suggestive of early small bowel obstruction or partial small bowel obstruction. Persistent posterior pelvic soft tissue density and presacral soft tissue density. Electronically Signed: Carlos Eduardo Marr MD at 12:49 EST , KUB X-Ray 06/30/22 13:30 IMPRESSION: The tip of the nasogastric tube is in the fundal portion of the stomach. Electronically Signed: Carlos Eduardo Marr MD at 14:00 EST , Assessment & Plan Assessment/Plan (1) Bowel obstruction: PLAN: Plan The patient is an 81 y/o M Who was admitted with 1 week of diffuse abdominal pain, associated with nausea along with loose bowel movement last 1, morning of admission. No blood in the stool. Passing flatus. w #1. Abdominal pain most likely due to partial small bowel obstruction: Patient is being admitted to [facility]. On supportive management, strict I&O's, NG tube decompression and n.p.o. Patient seen by surgeon. 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 Desouza. He was offered colonic surgery by Dr. Coyle of [facility] in 2019 but he refused. Work-up at that time was attempted endoscopy but could not advance beyond the stricture. MRI showed enlarged cardiac lymph nodes consistent with metastatic disease. Barium enema showed a stricture with no other obvious lesion. He was admitted in [facility] and treated for partial small bowel stricture with recent discomfort but had recurrence of abdominal therefore admitted #2. PAOD: Patient following w/ Dr. Maurer, noted 05/07/19 visit at that [facility] reproted 03/31/19 ZACH/PVR suggestive right femoral biphasic right popliteal biphasic right posterior tibial triphasic and right dorsalis pedis monophasic with a right ankle-brachial index of 0.89, left femoral popliteal posterior tib and dorsalis pedis waveforms are all monophasic, left ZACH was 0.61, PPG waveform of the right great digit was normal, PPG waveform for the left great digit was normal. Also, carotid US at that same time with noted less than 50% stenosis of the right internal carotid and less than 50% stenosis of the left internal carotid. Once able we will resume aspirin therapy, unfortunately statin intolerant, currently BP low thus would not initiate any hypertensive regimen and does not have history either. #3. Hx AAA: s/p repair open aortic aneurysm, [facility] in 2008, not on regimen, given NPO will hold on oral regimen but once appropriate will resume ASA therapy, statin intolerant. #4. Former tobacco use: Patient with 2 ppd x 34 history, quitting age 49, encourage continued tobacco cessation. #5. Prostate CA with known pelvic mass, ongoing outpatient evaluation: s/p prostatectomy, known pelvic mass with CT abdomen and pelvis upon current presentation with persistent posterior pelvic soft tissue density and presacral soft tissue density, following w/ Dr. Haywood, encourage continued outpatient follow-up. #6. Rheumatoid arthritis: Previously per prior records on [facility] and following with rheumatology but since off regimen secondary to cost, encourage continued follow-up outpatient. #7. History of VTE: Patient with prior reported history DVT, possibly PE, treated outpatient with apixaban which he is no longer on at this time. #8. Hyperlipidemia: Statin intolerance noted. #9. Chronic Kidney Disease Stage III, unclear subtype: Admission BUN/Cr 16/0.99, baseline renal function similar, repeat BMP in AM. #10. DVT prophylaxis: SCDs, Lovenox. #11. CODE status: Patient HCPOA is his was present and living will is currently in place. Discussed CODE status at length including difference between FULL code, DNR-CCA and DNR-CC status. Following discussions about the differences in these status, requested DNR-CCA, no intubation which was confirmed twice. Encouraged the patient and his also to set up a secondary HCPOA. They note having two children. Reported that often people may choose one to be HCPOA and the other FPOA. Advanced Care Planning Face to Face Time: 18 minutes. Admission Evaluation Time spent evaluating chart, patient history, patient evaluation, care planning and discussion with specialists: 75 minutes.
[2022-07-01 08:50] LABS: ALB/GLOB Ratio 0.9 RATIO (0.9-2.4); AST(SGOT) 17 U/L (15-37); Alanine Aminotransfer ALT/SGPT 21 U/L (16-61); Albumin, Serum 2.8 g/dL (3.2-5.0); Alkaline Phosphatase 34 U/L (45-117); Anion Gap 7 (5-15); BUN 14 mg/dL (7-18); BUN/Creat Ratio 14.1 RATIO (10-20); Calcium,Total 8.7 mg/dL (8.5-10.1); Chloride 109 mmol/L (98-107); Creatinine, Serum 0.99 mg/dL (0.70-1.30); EST Glomerular Filtration Rate 77 mL/min (>60); Est Glom Filt Rate - Afr Amer 93 mL/min (>60); Estimated Creatinine Clearance 50.04 ml/min; Globulin 3.1 g/dL (2.2-4.2); Glucose 97 mg/dL (74-106); Potassium 3.7 mmol/L (3.5-5.1); Protein, Total 5.9 g/dL (6.4-8.2); Sodium Level 141 mmol/L (136-145)
[2022-07-01] MEDS: Famotidine 200 MG/20 ML MDV 20 MG in 0.9% Normal Saline (Pres. free 8 ML 300 MG IV (09:14)
[2022-07-01 09:20] VITALS: BP 153/56; PULSE 74; RESP 18; TEMP 36.3; O2SAT 97
--- NOTE | 2022-07-01 10:13 | PN.SURG_ITS ---
Subjective Subjective patient denies any abdominal pain passing flatus Objective Data Objective Data Vital Signs: Vital Signs Temp Pulse Resp BP Pulse Ox O2 Del Method 97.4 F L 74 18 153/56 H 97 Room Air 07/01/22 09:20 07/01/22 09:20 07/01/22 09:20 07/01/22 09:20 07/01/22 09:20 07/01/22 09:20 Oxygen Delivery Method Room Air Weight: 69.9 kg Body Mass Index (BMI) 25.0 Intake & Output: Intake and Output for Last 24 Hours 06/29/22 06/30/22 07/01/22 23:59 23:59 23:59 Intake Total 80 / 80 1040 / 1040 Output Total 600 / 600 1300 / 1300 Balance -520 / -520 -260 / -260 Lab / Micro Data Attestation: I reviewed the patient's lab results. Result Diagrams: 07/01/22 06:58 07/01/22 06:58 Labs: Laboratory Results - last 24 hr 06/30/22 11:20: WBC 6.6, RBC 5.20, Hgb 13.9, Hct 43.3, MCV 83.3, MCH 26.7 L, MCHC 32.1, RDW Std Deviation 40.7, RDW Coeff of Willie 13.4, Plt Count , MPV 10.9, Immature Gran % (Auto) 0.600, Neut % (Auto) 81.1 H, Lymph % (Auto) 11.6 L, [place] % (Auto) 5.6, Eos % (Auto) 0.8, Baso % (Auto) 0.3, Absolute Neuts (auto) 5.4, Absolute Lymphs (auto) 0.77 L, Nucleated RBC % 0, Platelet Estimate ADEQUATE 06/30/22 11:20: Sodium 138, Potassium 4.4, Chloride 108 H, Carbon Dioxide 24.0, Anion Gap 6, BUN 16, Creatinine 0.99, Estim Creat Clear Calc 50.04, Est GFR ( MDRD) Af Amer 93, Est GFR (MDRD) Non-Af 77, BUN/Creatinine Ratio 16.2, Glucose 127 H, Calcium 9.1, Total Bilirubin 0.50, AST 22, ALT 24, Alkaline Phosphatase 37 L, Total Protein 6.8, Albumin 3.3, Globulin 3.5, Albumin/Globulin Ratio 0.9, Lipase 137 06/30/22 12:25: Urine Color Yellow, Urine Clarity Clear, Urine pH 6.0, Ur Specific [place] 1.020, Urine Protein 30 H, Urine Glucose (UA) Normal, Urine Ketones 5 H, Urine Occult Blood 250 H, Urine Nitrite Negative, Urine Bilirubin Negative, Urine Urobilinogen Normal, Ur Leukocyte Esterase 25 H, Urine RBC 25-50 SEEN, Urine WBC 0-5 SEEN, Ur Squamous Epith Cells 0 SEEN, Urine Bacteria 0 SEEN, Urine Mucus 0 SEEN 07/01/22 06:58: WBC 6.7, RBC 4.87, Hgb 12.9 L, Hct 40.9, MCV 84.0, MCH 26.5 L, MCHC 31.5 L, RDW Std Deviation 42.5, RDW Coeff of Willie 13.9, Plt Count 195, MPV 10.0, Immature Gran % (Auto) 0.400, Neut % (Auto) 66.3, Lymph % (Auto) 22.8, [place] % (Auto) 7.9, Eos % (Auto) 2.2, Baso % (Auto) 0.4, Absolute Neuts (auto) 4.4, Absolute Lymphs (auto) 1.53, Nucleated RBC % 0 07/01/22 06:58: Sodium 141, Potassium 3.7, Chloride 109 H, Carbon Dioxide 25.0, Anion Gap 7, BUN 14, Creatinine 0.99, Estim Creat Clear Calc 50.04, Est GFR (MDRD) Af Amer 93, Est GFR (MDRD) Non-Af 77, BUN/Creatinine Ratio 14.1, Glucose 97, Calcium 8.7, Total Bilirubin 0.60, AST 17, ALT 21, Alkaline Phosphatase 34 L , Total Protein 5.9 L, Albumin 2.8 L, Globulin 3.1, Albumin/Globulin Ratio 0.9 Radiography Diagnostic Testing: Radiology Impression Abdomen/Pelvis CT 06/30/22 11:09 IMPRESSION: Stable small cyst in the lower pole of the right kidney. Fatty infiltration of the liver. Stable appearance of the abdominal aorta. Dilatation of the ileal loops of small bowel suggestive of early small bowel obstruction or partial small bowel obstruction. Persistent posterior pelvic soft tissue density and presacral soft tissue density. Electronically Signed: Carlos Eduardo Marr MD at 12:49 EST , KUB X-Ray 06/30/22 13:30 IMPRESSION: The tip of the nasogastric tube is in the fundal portion of the stomach. Electronically Signed: Carlos Eduardo Marr MD at 14:00 EST , KUB X-Ray 07/01/22 06:35 IMPRESSION: 1. Nasogastric tube with the tip in the left upper quadrant likely in the fundus the stomach. 2. No bowel obstruction. Electronically Signed: Stevan Caal MD at 8:13 EST , Physical Exam Const alert and oriented x3 General Appearance: cooperative and comfortable Neck supple Resp normal respiratory effort Effort and Inspection: able to speak in complete sentences GI GI Narrative: abdomen is soft and benign Assessment & Plan Assessment/Plan (1) Rectal mass: PLAN: patient with known rectal stricture (not rectal mass as noted by MRI scan in 2019) - however, he is noted to have recurrence of prostate cancer by increased adenopathy He will follow up with Dr. Coyle's office for consideration of bowel surgery as this condition will continue/worsen Patient does admit that in the past month or two, he has had increasing difficulties with bowel movements will d/c NG tube trial of clear liquids if patient tolerates above - then d/c to home
--- NOTE | 2022-07-01 11:14 | DCINST_ITS ---
Discharge Instructions Diet Discharge Diet: Light diet - advance as tolerated (Clear liquid today and then soft diet from tomorrow a.m. for 5 days and then low-fat/low residue diet) Activity Discharge Activity: Return to Normal Activity and May Not Drive Weight Bearing Status: Weight bearing as tolerated Dressing / Incision Call your doctor if you observe: Fever of 101 or Higher, Coldness, Increased P ain, Numbness or Tingling, Change in Color, Inability to urinate, Inability to have a bowel movement, Shortness of breath, Dizziness, Fainting spells, Swelling in the ankles, Chest pain, Prolonged hiccupping, Increased palpitations (irregular heartbeat) and Calf discomfort Follow Up Care When: IN 2 WEEKS Test Results: Test results from this visit will be discussed in further detail at your follow- up appointment, if applicable. Discharge Plan Admission Admit Date/Time: 06/30/22 13:30 Primary Reason for Your Visit: Partial small bowel obstruction/ileus Attending Provider: Jamie Shine Primary Care Provider: Kaylan Webb Consulting Providers: Kristy Elmore ; Ivon Perdue Instructions Additional Instructions / Restrictions: Advised to follow-up with Dr. Coyle, colorectal surgery for rectal stricture and colostomy. If cannot then follow-up with Dr. Elmore for his plan out elective colostomy Discharge Orders/Prescriptions Prescriptions: Continued acetaminophen 500 MG tablet 1,000 mg PO DAILY PRN PRN (Reason: Pain Or Fever) Referrals / Follow Up: Kaylan Webb MD [Primary Care Provider] - Kristy Elmore MD [Med Staff - Active Staff] - Within 2 Weeks Disposition Disposition (needs filled in before D/C Order can be placed): Home, Self Care
--- NOTE | 2022-07-01 11:40 | CASEMGMT ---
YAS ORTIZ DC Planning Assessment: Face to Face with pt for initial transition planning/care coordination assessment. YAS ORTIZ introduced self and role to pt. Pt agreeable to participating in assessment. Pt alert and oriented x4. Care providers, pharmacy, and demographics verified. Admitting dx: SBO PCP: Tracey Specialists: Dr. Maurer Preferred phamacy: [facility] Insurance: MMO MCR w/Rx benefit Living will/HPOA: Yes, HPOA sons Yulisa. Requested for pt to have documents brought in for scanning. LNOK: Maureen and two son Yulisa Living Arrangements: Pt lives with spouse in a single story home. Pt states he is independent with ADLS including household tasks. Family is able to assist him if needed. Transportation: pt drives and his drives also DME: grab bars in the bathroom, no assistive devices needed for ambulation [facility]: [facility] s[facility] 4 years ago. HHC: no previous Plan: pt plans to return home at discharge with the support of his family. Pt denies any discharge needs at this time. Ernst Gibson RN CM
[2022-07-01 11:58] VITALS: O2SAT 96
--- NOTE | 2022-07-01 12:17 | PCM.DC.SUM ---
Providers Date of Admission: 06/30/22 Date of Discharge: 07/01/22 Primary Care Physician: Dr. Kaylan Webb MD Consultations 06/30/22 15:02 Consult: General Surgery Routine Consulting Provider: Kristy Elmore Reason for Consult: pSBO EMERGENT Consult: No MD Notified: Yes Date Notified: 06/30/22 Time Notified: 13:32 Method of Notification: ED Physician Initiated Reason For Visit: pSBO, RECURRENT Diagnosis Discharge Diagnosis (1) Rectal mass: Status: Acute Code(s): K62.89 - Other specified diseases of anus and rectum Plan The patient is an 81 y/o M Who was admitted with 1 week of diffuse abdominal pain, associated with nausea along with loose bowel movement last 1, morning of admission. No blood in the stool. Passing flatus. #1. Abdominal pain most likely due to partial small bowel obstruction: In ED, patient had CT abdomen pelvis showed dilated ileal loops of small bowel suggestive of early small bowel obstruction/partial small bowel obstruction. Persistent posterior pelvic soft tissue density and presacral soft tissue density The patient was being admitted to [facility]. Patient was started on supportive management, strict I&O's, NG tube decompression and n.p.o. Patient seen by surgeon. Later on NG tube was removed as it was adequately decompressed. Follow-up KUB shows no bowel obstruction. Surgical site started patient on clear liquid and discharged in the evening continue soft diet for the next 5 days. Patient has history of prostate cancer status post probably EBRT in 2001 and probably consequent rectal stricture 6 cm from anal verge as documented by Dr. Desouza. He was offered colonic surgery by Dr. Coyle of [facility] in 2019 but he refused. Work-up at that time was attempted endoscopy but could not advance beyond the stricture. MRI showed enlarged pelvic lymph nodes consistent with metastatic disease. Barium enema showed a stricture with no other obvious lesion. He was admitted in [facility] and treated for partial small bowel stricture with recent discomfort but had recurrence of abdominal therefore admitted #2. Peripheral atherosclerotic arterial disease:: Patient follows Dr. Maurer. ZACH/PVR 03/31/19 ZACH/PVR suggestive right ankle-brachial index of 0.89, left femoral popliteal posterior tib and dorsalis pedis waveforms are all monophasic, left ZACH was 0.61 consistent with mild to moderate disease in right and severe disease on left. Also, carotid US at that same time with noted less than 50% stenosis of the right internal carotid and less than 50% stenosis of the left internal carotid. Patient is allergic to aspirin noted bleeding in the history. #3. Hx AAA: s/p repair open aortic aneurysm, [facility][1] in 2008, patient is statin intolerant also #4. Former tobacco use: Patient with 2 ppd x 34 history, quitting age 49, encourage continued tobacco cessation. #5. Prostate CA with known pelvic mass, ongoing outpatient evaluation: s/p prostatectomy, patient follows Dr. Haywood. #6. Rheumatoid arthritis: Follow-up outpatient. #7. History of VTE: Patient with prior reported history DVT, possibly PE, treated outpatient with apixaban which he is no longer on at this time. #8. Hyperlipidemia: Statin intolerance noted. #9. Chronic Kidney Disease Stage III,a: Admission BUN/Cr 16/0.99, baseline renal function similar, estimated creatinine impression 51 permanent #10. DVT prophylaxis: SCDs, Lovenox. #11. CODE status: DNRCC arrest with no intubation Discharge medication reconciliation done. Discharge follow-up instructions completed. Discharge process discussed with the patient and all questions were answered to patient's satisfaction. Total time spent, exact 35 minutes on discharge meds reconciliation, examination, coordination of care with nurses and ancillary staff, review of imaging and blood test and discussion with the patient on follow-up instructions. Medications at Discharge Home Medications acetaminophen 500 mg tablet 1,000 mg PO DAILY PRN PRN Pain Or Fever 05/13/19 Physical Exam Narrative Seen and examined in the morning. Patient had NG tube in the morning which was removed later on. In NG tube clear gastric bilious fluid. Physical exam General: Alert, Oriented x3, Cooperative HEENT: Atraumatic, PERRLA, EOMI, Normocephalic Oral: No Gingival or Mucosal Lesions/ Ulcerations Neck: Supple, No JVD, Negative Carotid Bruits Lungs: Air entry diminished in bilateral lung bases. No crepitation/rhonchi Cardiovascular: Regular rate, Regular Rhythm, Normal S1, Normal S2, No murmurs Abdomen: Scaphoid abdomen. Bowel Sounds sluggish, Soft, Non Tender, Non-Distended : No renal angle tenderness. No suprapubic tenderness. Extremities: No edema, Capillary Refill Less than 3 Seconds Skin: No rashes, No breakdown Musculoskeletal: No Tenderness to Palpation of Joints or Extremities, ROM restricted. Muscle strength 4+/5 at major joints Neurological: Cranial nerves II-XII grossly intact, DTR 2+/4. Symmetrical Psych/Mental Status: Flat affect Weight / BMI Weight Weight: 154 lb 1.65 oz Body Mass Index (BMI) 25.0 ABG / Lab / Microbiology Data Result Diagrams: 07/01/22 06:58 07/01/22 06:58 Laboratory: Laboratory Results - last 24 hr 06/30/22 12:25: Urine Color Yellow, Urine Clarity Clear, Urine pH 6.0, Ur Specific [place] 1.020, Urine Protein 30 H, Urine Glucose (UA) Normal, Urine Ketones 5 H, Urine Occult Blood 250 H, Urine Nitrite Negative, Urine Bilirubin Negative, Urine Urobilinogen Normal, Ur Leukocyte Esterase 25 H, Urine RBC 25-50 SEEN, Urine WBC 0-5 SEEN, Ur Squamous Epith Cells 0 SEEN, Urine Bacteria 0 SEEN, Urine Mucus 0 SEEN 07/01/22 06:58: WBC 6.7, RBC 4.87, Hgb 12.9 L, Hct 40.9, MCV 84.0, MCH 26.5 L, MCHC 31.5 L, RDW Std Deviation 42.5, RDW Coeff of [place] 13.9, Plt Count 195, MPV 10.0, Immature Gran % (Auto) 0.400, Neut % (Auto) 66.3, Lymph % (Auto) 22.8, [place] % (Auto) 7.9, Eos % (Auto) 2.2, Baso % (Auto) 0.4, Absolute Neuts (auto) 4.4, Absolute Lymphs (auto) 1.53, Nucleated RBC % 0 07/01/22 06:58: Sodium 141, Potassium 3.7, Chloride 109 H, Carbon Dioxide 25.0, Anion Gap 7, BUN 14, Creatinine 0.99, Estim Creat Clear Calc 50.04, Est GFR (MDRD) Af Amer 93, Est GFR (MDRD) Non-Af 77, BUN/Creatinine Ratio 14.1, Glucose 97, Calcium 8.7, Total Bilirubin 0.60, AST 17, ALT 21, Alkaline Phosphatase 34 L, Total Protein 5.9 L, Albumin 2.8 L, Globulin 3.1, Albumin/Globulin Ratio 0.9 Radiography Diagnostic Testing: Radiology Impression Abdomen/Pelvis CT 06/30/22 11:09 IMPRESSION: Stable small cyst in the lower pole of the right kidney. Fatty infiltration of the liver. Stable appearance of the abdominal aorta. Dilatation of the ileal loops of small bowel suggestive of early small bowel obstruction or partial small bowel obstruction. Persistent posterior pelvic soft tissue density and presacral soft tissue density. Electronically Signed: Carlos Eduardo Marr MD at 12:49 EST , KUB X-Ray 06/30/22 13:30 IMPRESSION: The tip of the nasogastric tube is in the fundal portion of the stomach. Electronically Signed: Carlos Eduardo Marr MD at 14:00 EST , KUB X-Ray 07/01/22 06:35 IMPRESSION: 1. Nasogastric tube with the tip in the left upper quadrant likely in the fundus the stomach. 2. No bowel obstruction. Electronically Signed: Stevan Caal MD at 8:13 EST , D/C Instructions Discharge Diet: Light diet - advance as tolerated (Clear liquid today and then soft diet from tomorrow a.m. for 5 days and then low-fat/low residue diet) Weight Bearing Status: Weight bearing as tolerated Call your doctor if you observe: Fever of 101 or Higher, Coldness, Increased Pain, Numbness or Tingling, Change in Color, Inability to urinate, Inability to have a bowel movement, Shortness of breath, Dizziness, Fainting spells, Swelling in the ankles, Chest pain, Prolonged hiccupping, Increased palpitations (irregular heartbeat) and Calf discomfort When: IN 2 WEEKS Meaningful Use Info Meaningful Use Diagnoses (Choose all that apply): None applicable Discharge Plan Admission Admit Date/Time: 06/30/22 13:30 Primary Reason for Your Visit: Partial small bowel obstruction/ileus Attending Provider: Jamie Shine Primary Care Provider: Kaylan Webb Consulting Providers: Kristy Elmore ; Ivon Perdue Instructions Additional Instructions / Restrictions: Advised to follow-up with Dr. Coyle, colorectal surgery for rectal stricture and colostomy. If cannot then follow-up with Dr. Elmore for his plan out elective colostomy Discharge Orders/Prescriptions Prescriptions: Continued acetaminophen 500 MG tablet 1,000 mg PO DAILY PRN PRN (Reason: Pain Or Fever) Referrals / Follow Up: Kaylan Webb MD [Primary Care Provider] - Kristy Elmore MD [Med Staff - Active Staff] - Within 2 Weeks Disposition Disposition (needs filled in before D/C Order can be placed): Home, Self Care Charges/Coding Visit Charges Inpatient E&M: 86632 Disch Hosp >30min
[2022-07-01 14:33] VITALS: BP 159/62; PULSE 66; RESP 16; TEMP 36.6; O2SAT 97
== END 2022-07-01 14:36 | disposition home or self-care (01) | DRG 389 ==
LOC: ED 11:21 → MS3 14:28
PROVIDERS: Admitting Provider Family Medicine; Emergency Provider Student in an Organized Health Care Education/Training Program; PCP Internal Medicine; Visit Provider Internal Medicine
DX: K56.600 Partial intestinal obstruction, unspecified as to cause (principal); K91.89 Other postprocedural complications and disorders of digestive system; K62.4 Stenosis of anus and rectum; C61 Malignant neoplasm of prostate; I73.9 Peripheral vascular disease, unspecified; N18.31 Chronic kidney disease, stage 3a; M06.9 Rheumatoid arthritis, unspecified; E78.5 Hyperlipidemia, unspecified; Z66 Do not resuscitate; Z79.899 Other long term (current) drug therapy; Z86.718 Personal history of other venous thrombosis and embolism; Z86.711 Personal history of pulmonary embolism; Z87.891 Personal history of nicotine dependence
CPT/HCPCS: 36415; 74018; 74177; 80053; 81001; 83690; 85025; 99252; 99284; J7030; Q9967; A4216; G0463; J2405; J3490

== ENCOUNTER → 2022-08-15 | Outpatient (CLI) | payer MEDICARE, SELFPAY ==
[2022-08-15 17:27] LABS: Creatinine, Serum 0.96 mg/dL (0.70-1.30); EST Glomerular Filtration Rate 80 mL/min (>60); Est Glom Filt Rate - Afr Amer 96 mL/min (>60)
== END | disposition home or self-care (01) ==
LOC: LAB 16:17
PROVIDERS: PCP Internal Medicine; Visit Provider Surgery Trauma Surgery
DX: I77.9 Disorder of arteries and arterioles, unspecified (principal)
CPT/HCPCS: 36415; 82565

== ENCOUNTER → 2022-09-21 | Outpatient (CLI) | payer MEDICARE, SELFPAY ==
--- NOTE | 2022-09-21 13:55 | CT_ITS ---
STUDY: CTA OF THE ABDOMINAL AORTA AND BILATERAL LOWER EXTREMITIES REASON FOR EXAM: Male, 82 years old. atherosclerosis bilateral lower extremities. Bilateral lower extremity pain with walking. History of prostate cancer. History of abdominal aortic aneurysm. RADIATION DOSAGE (If Supplied By Facility): CTDIvol = ( 6.30 ) mGy, DLP = ( 989.45 ) mGycm TECHNIQUE: Axial CT angiography multi-detector data acquisition was obtained from the dome of the liver to the level of the ankles following intravenous administration of IV 100mL Isovue-[id number]. Axial images and MIP images were reconstructed from the axial data set. Post-processing of the angiographic images was performed, with multiplanar reformation and 3D reconstruction. Individualized dose optimization techniques were used for this CT. TECHNICAL QUALITY: Good COMPARISON: Comparison is made with prior study dated April 17, 2019. Descriptors of Narrowing: None (0%) Mild (< 50%) Moderate (50-70%) Severe (70-90%) Subtotal/Total Occlusion (90-100%) Non-Evaluable (technically non-diagnostic FINDINGS: Diffuse fatty infiltration of the liver. Prior cholecystectomy. Diffuse soft tissue prominence in the presacral space involving the prostate. This is essentially unchanged. Abdominal aorta: Atherosclerotic calcific plaques of the [place] abdominal aorta. The patient appears to be status post aorto biiliac bypass surgery. There is mural thrombus [place] abdominal aorta. This is unchanged. The [place] abdominal aorta has a transverse dimension of 2.2 cm cyst. Celiac and superior mesenteric arteries: No demonstrated narrowing. Inferior mesenteric artery: Not visualized. Right renal artery(arteries): Atherosclerotic plaque formation at the origin of the right renal artery. Left renal artery(arteries): Atherosclerotic plaque formation of the left renal artery. Right common iliac artery: Mildly stenotic calcific plaques. Right external iliac artery: No demonstrated narrowing. Right internal iliac artery: Not visualized. Left common iliac artery: Mild degree of the sclerotic calcific plaques. Left external iliac artery: No demonstrated narrowing. Left internal iliac artery: Not visualized. RIGHT LOWER EXTREMITY Right common femoral artery: No demonstrated narrowing. Right profundus femoris: No demonstrated narrowing. Right superficial femoral: Focal short segment occlusion of the distal superficial femoral artery. Right popliteal artery: No demonstrated narrowing. Right tibioperoneal trunk: No demonstrated narrowing. Right anterior tibial artery: No demonstrated narrowing. Right posterior tibial artery: No demonstrated narrowing. Right peroneal artery: Not visualized. LEFT LOWER EXTREMITY Left common femoral artery: No demonstrated narrowing. Left profundus femoris: No demonstrated narrowing. Left superficial femoral: No demonstrated narrowing. Left popliteal artery: No demonstrated narrowing. Left tibioperoneal trunk: No demonstrated narrowing. Left anterior tibial artery: No demonstrated narrowing. Left posterior tibial artery: No demonstrated narrowing. Left peroneal artery: Not visualized. CT/CTA Abd w/Runoff W/WO Contrast IMPRESSION: Focal short segment stenosis of the right superficial femoral artery. Two-vessel runoff. Two-vessel runoff in the left leg. Small abdominal aortic aneurysm with mural thrombus and findings suggest left status post aorto biiliac grafting. Electronically Signed: Carlos Eduardo Marr MD at 13:39 EDT ,
[2022-09-21 14:26] LABS: EGFR FINGERSTICK > 60.0000 mL/min (>60)
== END | disposition home or self-care (01) ==
LOC: CT 13:54
PROVIDERS: PCP Internal Medicine; Referring Provider Surgery Trauma Surgery; Visit Provider Surgery Trauma Surgery
DX: I70.213 Atherosclerosis of native arteries of extremities with intermittent claudication, bilateral legs (principal); I71.40 Abdominal aortic aneurysm, without rupture, unspecified
CPT/HCPCS: 75635; Q9967

== ENCOUNTER → 2022-11-23 | Outpatient (CLI) | payer MEDICARE, SELFPAY ==
[2022-11-23 12:45] VITALS: BP 164/46; PULSE 54; RESP 18; TEMP 36.2; O2SAT 97; BMI 25.6
--- NOTE | 2022-11-23 13:24 | NURSING ---
Upon getting consent with the patient it was determined he had this procedure done within the last week at another facility. [facility] called pt's ordering physician to ask if pt had this procedure done. No one available to answer the call. Jeannette was then called to ask if pt had lumbar myelogram done at their facility. It was confirmed pt had myelogram and it was resulted on 11/17/22. Pt then sent home. Dr Nagy's office called [facility] and it was confirmed pt did have procedure done and results were not to Dr. balderas. [facility] let them know that jeannette stated results were complete on 11/17/22.
== END | disposition home or self-care (01) ==
PROVIDERS: PCP Internal Medicine; Referring Provider Orthopaedic Surgery Orthopaedic Surgery of the Spine; Visit Provider Orthopaedic Surgery Orthopaedic Surgery of the Spine
DX: Z47.89 Encounter for other orthopedic aftercare (principal)

== ENCOUNTER → 2023-12-29 | Outpatient (CLI) | payer MEDICARE, SELFPAY ==
[2023-12-29 08:50] LABS: Absolute Lymphocyte Count 1.26 X10^3/uL (0.83-4.51); Absolute Neutrophil Count 4.5 X10^3/uL (2.0-7.7); Basophil# 0.03 X10^3/uL; Basophil% 0.5 % (0-1); Eosinophil# 0.21 X10^3/uL; Eosinophils% 3.2 % (0-5); Hematocrit 40.5 % (40-54); Hemoglobin 12.3 g/dL (13.0-16.5); Lymphocyte # 1.26 X10^3/ul (0.83-4.51); Lymphocyte % 19.2 % (19-41); Mean Corp Hgb Conc 30.4 g/dL (32-36); Mean Corpuscular Hgb 24.9 pg (27.0-32.0); Mean Platelet Vol. 9.2 fl (6.2-12.0); Monocyte# 0.51 X10^3/uL; Monocyte% 7.8 % (0-10); NRBC Flagged by Analyzer 0 % (0-5); Neutrophil # 4.51 X10^3/uL (2.7-7.7); Neutrophil % 68.5 % (47-70); Platelet Count 209 K/mm3 (150-450); RBC Distribution Width CV 14.8 % (11.6-14.6); RBC Distribution Width SD 44.3 fl (35.1-43.9); Red Blood Count 4.94 M/mm3 (4.6-6.2); White Blood Count 6.6 K/mm3 (4.4-11.0)
[2023-12-29 09:22] LABS: ALB/GLOB Ratio 0.8 RATIO (0.9-2.4); AST(SGOT) 19 U/L (15-37); Alanine Aminotransfer ALT/SGPT 25 U/L (16-61); Alkaline Phosphatase 34 U/L (45-117); Anion Gap 6 (5-15); BUN 21 mg/dL (7-18); BUN/Creat Ratio 25.2 RATIO (10-20); Calcium,Total 9.4 mg/dL (8.5-10.1); Chloride 105 mmol/L (98-107); Cholesterol 117 mg/dL (200); Creatinine, Serum 0.83 mg/dL (0.70-1.30); EST Glomerular Filtration Rate 94 mL/min (>60); Est Glom Filt Rate - Afr Amer 113 mL/min (>60); Ferritin 201 ng/mL (26-388); Globulin 3.7 g/dL (2.2-4.2); Glucose 95 mg/dL (74-106); High Density Lipoprotein 46 mg/dL; Iron 47 ug/dL (65-175); Iron Binding Capacity,Total 323 ug/dL (250-450); PERCENT IRON SATURATION 14.6 % (15.0-55.0); Potassium 3.7 mmol/L (3.5-5.1); Protein, Total 6.7 g/dL (6.4-8.2); Sodium Level 138 mmol/L (136-145); Triglycerides 85 mg/dL; Very Low Density Lipoprotein 17 mg/dL (5-40)
== END | disposition home or self-care (01) ==
PROVIDERS: PCP Internal Medicine; Referring Provider Internal Medicine; Visit Provider Internal Medicine
DX: D50.9 Iron deficiency anemia, unspecified (principal); E78.5 Hyperlipidemia, unspecified
CPT/HCPCS: 36415; 80053; 80061; 82728; 83540; 83550; 85025